=== PATIENT | female | born 1955 | race Caucasian/White ===

== ENCOUNTER → 2016-09-27 | Outpatient (CLI) | payer BC ==
[2015-09-29 14:03] VITALS: BP 152/88; PULSE 84
[~2016-09-27] MED LIST: ACET-1256 PO; ANAS1TAB19 PO; CALC500C70 PO; HYDR-5688 PO; LSN20 PO; METO-157 PO; MULT-506 PO; ZNT150 PO; ZNTT/150 PO
[2016-09-27 13:06] VITALS: BP 149/96; PULSE 70; TEMP 37; O2SAT 96
--- NOTE | 2016-09-27 13:39 | Radiation Oncology Follow-Up ---
Radiation Oncology Follow-Up Date of Visit Sep 27, 2016. Reason For Visit Annual follow up Radiation Completion Date 03/01/15 Diagnosis (1) Breast cancer Status: Resolved Onset Date: 06/16/2014 Permanent Comment: Self detected right breast mass Abnormal bilateral mammography and ultrasounds Status post ultrasound-guided biopsies 05/21/2014 revealing DCIS of the left breast and invasive lobular carcinoma the right breast Status post bilateral mastectomies with left sentinel lymph node biopsy and right axillary dissection Left breast stage [id number] Right breast stage [id number] M0G3 Status post 6 cycles of TCH Ongoing Herceptin for 1 year Status post completion of radiation therapy right chest wall, supraclavicular area and axilla 03/01/2015 received 6120 cGy Last Edited By: Yamel Rockwell on Sep 27, 2016 13:32 History of Present Illness his is a 61-year-old white female who self detected a right breast mass. She had a mammogram on 05/21/2014 which showed 2 dominant masses in the right breast. This caused focal skin thickening and retraction in the right breast. A second deeper lesion was large extending with spiculations measuring 5.2 cm in diameter. This caused nipple retraction and occupied most of the central 12: 00 right breast. This was associated with clustered calcifications mostly along the posterior margin near the fat glandular interface. Within the left breast there was pleomorphic and fine linear branching microcalcifications extending over at least an 8.7 cm distance from posterior to anterior in the left outer quadrant. An ultrasound was performed the findings were highly suspicious for malignancy. On 05/21/2014 ultrasound-guided biopsies were performed on the right and a vacuum assisted ultrasound-guided biopsy on the left. Finding in the right breast showed invasive lobular carcinoma Luisa grade 2 of 3 involving multiple cores measuring at least 0.5 cm in greatest dimension. No lymphovascular or perineural invasion was seen. The tumor cells were ER +95%, progesterone receptor +90% and negative for HER-2/jeri overexpression. The left breast ultrasound-guided vacuum-assisted biopsy showed ductal carcinoma in situ high-grade with associated comedo necrosis and calcifications. On June 16 patient was taken to the operating room and she had bilateral mastectomies. She had left sentinel lymph node sampling and a right axillary dissection.She developed hematoma was taken back to the emergency room and required a transfusion. She steadily recovered from her surgeries. The final path report revealed left breast with high-grade DCIS. 2 lymph nodes were biopsied and were negative for metastatic disease. The right breast showed invasive lobular carcinoma Luisa grade 3 of 3 the tumor measured 7.2 cm in greatest dimension. The axillary lymph node dissection revealed 7 of 10 nodes positive in axillary contents and 2 of 2 additional lymph nodes. The total was 9 12 lymph nodes. There was lymphovascular invasion present. Estrogen receptor positive progesterone receptor positive and HER-2/jeri was positive. AJCC staging [id number] Following recovery from her surgery she began chemotherapy. She completed 6 cycles of TCH. She did have some nausea without vomiting. It did cause fatigue. She denied any problems with paresthesias. No problems with changes of the fingernails or toenails. She had no mouth ulcerations. She noted difficulty with bowel movements. She'll continue on the Herceptin every 3 weeks. She has returned to our office for CT simulation to begin the process of radiation therapy. Interim History She's been doing well over this past year. She has noticed no change in the right chest wall. She is not no masses or tenderness no axillary adenopathy. She denies any swelling in her lower arm. She previously had some lymphedema in the upper arm and went to lymphedema therapy. She had the port removed from the left upper anterior chest wall. She noticed a small area of scar tissue just below the incision line. There is no tenderness or redness associated. She is seen regularly by medical oncology. She is on Arimidex and denies side effects. Allergies Coded Allergies: No Known Allergies (Unverified , 06/27/16) Home Medications Scheduled Anastrozole (Arimidex), 1 TAB PO QAM Calcium/Vitamin D (Os-Angel 500 Plus D), 1 TAB PO BID Lisinopril (Lisinopril), 20 MG PO QAM Scheduled PRN Hydrocodone/Acetaminophen 5MG/325MG ([place] 5MG/325MG), 1-2 TABLET PO q 6 hrs PRN for Pain Review of Systems Gastrointestinal: Symptoms: WNL Oral: Symptoms: No Problems Respiratory: Symptoms: WNL Urinary: Symptoms: WNL Skin: Symptoms: No Problems Breast: Right Upper Arm Measurement: 32.5 Right Mid Arm Measurement: 29.2 Right Wrist Measurement: 18.1 Left Upper Arm Measurement: 36.1 Left Mid Arm Measurement: 30.0 Left Wrist Measurement: 18.0 Arm Dominence: Right Physical Exam Vital Signs Date Time Temp Pulse Resp B/P Pulse Ox O2 Delivery O2 Flow Rate FiO2 09/27/16 13:06 37.0 70 14 149/96 96 Pain: Pain Location: None Patient Pain Scale: 0 - 10 Initial Pain Intensity: 0.0 Fatigue: None General Appearance: no apparent distress Eyes: normal inspection, EOMI ENT: normal ENT inspection, hearing grossly normal Neck: no adenopathy, thyroid normal Respiratory/Chest: lungs clear, no respiratory distress, no accessory muscle use Breast: Breast examination reveals bilateral mastectomies. On the right there are tattoos from prior treatment cast. There are no masses or tenderness and no axillary adenopathy. There is mild telangiectasis along the incision line. Using the [place] score cosmesis she has a good outcome. The left chest wall showed no masses or tenderness and no axillary adenopathy. She has a well- healed incision where the port had been placed. There is a small palpable nodule just below the incision line. There is no erythema or tenderness. Cardiovascular: regular rate, rhythm, no gallop, no murmur Extremities: no pedal edema Neurologic/Psychiatric: no motor/sensory deficits, alert, normal mood/affect Skin: warm/dry Lymphatic: no adenopathy Laboratory Studies Test 08/31/16 12:36 White Blood Count 12.11 K/uL (4.8-10.8) Red Blood Count 4.24 M/uL (4.2-5.4) Hemoglobin 11.9 g/dL (12.0-16.0) Hematocrit 35.7 % (37-47) Mean Corpuscular Volume 84.2 fL (80-100) Mean Corpuscular Hemoglobin 28.1 pg (25-34) Mean Corpuscular Hemoglobin Concent 33.3 g/dl (32-36) Platelet Count 167 K/uL (130-400) Mean Platelet Volume 8.9 fL (7.4-10.4) Neutrophils (%) (Auto) 72.0 % Lymphocytes (%) (Auto) 16.2 % Monocytes (%) (Auto) 8.1 % Eosinophils (%) (Auto) 3.1 % Basophils (%) (Auto) 0.4 % Neutrophils # (Auto) 8.73 K/uL (1.4-6.5) Lymphocytes # (Auto) 1.96 K/uL (1.2-3.4) Monocytes # (Auto) 0.98 K/uL (0.11-0.59) Eosinophils # (Auto) 0.37 K/uL (0-0.5) Basophils # (Auto) 0.05 K/uL (0-0.2) RDW Standard Deviation 47.4 fL (36.4-46.3) RDW Coefficient of Variation 15.4 % (11.5-14.5) Immature Granulocyte % (Auto) 0.2 % Immature Granulocyte # (Auto) 0.02 K/uL (0.00-0.02) Sodium Level 142 mmol/L (136-145) Potassium Level 3.7 mmol/L (3.5-5.1) Chloride Level 106 mmol/L (98-107) Carbon Dioxide Level 25 mmol/L (21-32) Anion Gap 11.0 mmol/L (3-11) Blood Urea Nitrogen 16 mg/dl (7-18) Creatinine 0.84 mg/dl (0.60-1.20) Est Creatinine Clear Calc Drug Dose 79.5 ml/min Estimated GFR () 87.6 Estimated GFR (Non- 75.5 BUN/Creatinine Ratio 18.7 (10-20) Random Glucose 79 mg/dl (70-99) Calcium Level 9.2 mg/dl (8.5-10.1) Total Bilirubin 0.3 mg/dl (0.2-1) Aspartate Amino Transferase (AST) 31 U/L (15-37) Alanine Aminotransferase (ALT) 32 U/L (12-78) Alkaline Phosphatase 154 U/L (45-117) Lactate Dehydrogenase 158 U/L (84-246) Total Protein 7.0 gm/dl (6.4-8.2) Albumin 3.5 gm/dl (3.4-5.0) Globulin 3.5 gm/dl (2.5-4.0) Albumin/Globulin Ratio 1.0 (0.9-2) Assessment & Plan Plan: Continue regular follow-up with medical oncology. We discussed the small nodule of the area just below the port. This may be a previous anchoring suture. I've asked her to call should this become larger or if she would develop any tenderness or redness in this area. She continues on Arimidex. We asked her to return to our office in 1 year. She may call if she has any questions or concerns in the interim. Total Time In Follow-Up I spent 15 minutes speaking to the patient performing examination. I spent 15 minutes reviewing information and completeness note. Copy To Constantin Pineda D.O.; Prabhjot Muñiz M.D.; Abdiel Bray M.D.
== END | disposition home or self-care (01) ==
LOC: C.ONC 13:00
PROVIDERS: ATTEND Radiology Radiation Oncology
DX: Z08 Encounter for follow-up examination after completed treatment for malignant neoplasm (principal); Z92.3 Personal history of irradiation; Z85.3 Personal history of malignant neoplasm of breast

== ENCOUNTER → 2017-01-04 | Outpatient (CLI) | payer BC ==
[~2017-01-04] MED LIST changes: -HYDR-5688 PO
--- NOTE | 2017-01-04 12:41 | DIAGNOSTIC IMAGING REPORT ---
CHEST 2 VIEWS ROUTINE CLINICAL HISTORY: Breast carcinoma. COMPARISON STUDY: 07/27/2014 FINDINGS: The heart is normal in size. There is been interval development of a small left pleural effusion. Minor left basal parenchymal changes likely representing compressive atelectasis. The right lung is clear. There is no failure. Degenerative changes are present within the dorsal spine.[ IMPRESSION: Interval development of a left pleural effusion. Electronically signed by: Alexis Bloom M.D. 01/04/2017 12:39 PM Dictated Date/Time: 01/04/2017 12:38 PM
== END | disposition home or self-care (01) ==
LOC: C.RAD 12:19
PROVIDERS: ATTEND Internal Medicine Hematology & Oncology
DX: C50.111 Malignant neoplasm of central portion of right female breast (principal); J90 Pleural effusion, not elsewhere classified

== ENCOUNTER → 2017-01-17 | Outpatient (CLI) | payer BC ==
[~2017-01-17] MED LIST changes: +OPTIRAY 320 IV PRN
--- NOTE | 2017-01-17 13:18 | DIAGNOSTIC IMAGING REPORT ---
CT SCAN OF THE ABDOMEN AND PELVIS WITH IV CONTRAST CLINICAL HISTORY: Breast cancer. COMPARISON STUDY: PET/CT dated 07/13/2014. TECHNIQUE: Following the IV administration of 118 cc of Optiray 320, CT scan of the abdomen and pelvis is performed from the lung bases to the proximal femora. Images are reviewed in the axial, sagittal, and coronal planes. IV contrast was administered without complication. Automated dose control exposure was utilized. CT DOSE: 870.30 mGy.cm FINDINGS: Lung bases: The heart is normal in size and without pericardial effusion. There is a small to moderate left pleural effusion with associated atelectasis. Only trace pleural effusion is seen on the right. There is a small hiatal hernia. The breasts are surgically absent. Liver: The contrast-enhanced liver is normal in size, contour, and attenuation. There is no intrahepatic biliary ductal dilatation. The hepatic veins and portal veins are patent. Gallbladder: Contracted. Spleen: Normal in size and markedly heterogeneous in attenuation. Pancreas: Unremarkable. Adrenal glands: Unremarkable. Kidneys: The contrast enhanced kidneys demonstrate mild cortical atrophy and are without hydronephrosis. The kidneys enhance symmetrically. A 6 cm cyst is noted in the interpolar right kidney. Abdominal vasculature: The abdominal aorta is normal in course and caliber noting scattered foci of atherosclerotic calcification. Bowel: The small bowel and colon are normal in course and caliber. The appendix appears abnormal and thickened, seen in the right lower quadrant on image #287. This measures 1.3 cm in diameter. Peritoneum: There is a moderate to large volume of abdominopelvic ascites. No intraperitoneal free air is seen. Omental caking is suggested anteriorly, and the appearance is highly concerning for peritoneal carcinomatosis. Lymphadenopathy: None. Pelvic viscera: The bladder is decompressed and not well assessed. The endometrium appears thickened for age. The ovaries appear enlarged and heterogeneous. A 3.8 cm simple appearing cystic structure seen adjacent to the left ovary on axial image #322. Skeletal structures: The skeletal structures are osteopenic. Findings are consistent with diffuse/widespread osteoblastic metastatic disease. Osteoblastic lesions are seen throughout all of the visualized bony structures. There is no evidence of pathologic fracture. Only mild lumbosacral spondylosis is observed. IMPRESSION: 1. Findings are consistent with diffuse/widespread osteoblastic metastatic disease. 2. There is a moderate to large volume of abdominopelvic ascites and omental caking is observed. The appearance is highly concerning for peritoneal carcinomatosis. 3. The ovaries are enlarged and heterogeneous, and appear symmetric bilaterally, and a 3.8 cm cystic structure is seen adjacent to the left ovary. Given the history of breast cancer this likely represents metastatic disease to the ovaries. Primary ovarian neoplasm is the top differential consideration. 4. The appendix is dilated and fluid-filled, and this represents a change from 07/13/2014. Acute appendicitis is considered unlikely, and this also likely represents metastatic disease. A primary appendiceal neoplasm is the top differential consideration. 5. The endometrium appears abnormally thickened for age. This is not well assessed by CT. Consider nonemergent pelvic ultrasound for further assessment. 6. Small to moderate left and trace right pleural effusions. 7. The breasts are surgically absent. 8. There is nonspecific marked heterogeneity of the spleen. 9. Additional findings as above. Electronically signed by: Melecio Schultz M.D. 01/17/2017 1:17 PM Dictated Date/Time: 01/17/2017 1:01 PM
== END | disposition home or self-care (01) ==
LOC: C.CTS 10:18
PROVIDERS: ATTEND Internal Medicine Hematology & Oncology
DX: C50.111 Malignant neoplasm of central portion of right female breast (principal); R18.8 Other ascites; Z90.13 Acquired absence of bilateral breasts and nipples; N83.299 Other ovarian cyst, unspecified side; M85.88 Other specified disorders of bone density and structure, other site

== ENCOUNTER → 2017-01-29 | Outpatient (CLI) | payer BC ==
[~2017-01-29] MED LIST changes: -OPTIRAY 320 IV PRN
--- NOTE | 2017-01-29 10:50 | DIAGNOSTIC IMAGING REPORT ---
PET/CT HISTORY: BREAST CANCER TECHNIQUE: PET/CT was performed from the base of the skull through the pelvis following the intravenous administration of 11.8 mCi of F18-FDG. Non-contrast CT imaging was performed over the same range without breath-hold for attenuation correction of PET images and anatomic correlation, but not for primary interpretation as it is not of standard diagnostic quality. CT DOSE: 530.27 mGycm COMPARISON: Abdomen and pelvis CT 01/17/2017. PET CT 07/13/2014. FINDINGS: HEAD AND NECK: There is no FDG-avid disease or significant lymphadenopathy in the imaged portions of the head and the neck. CHEST: Moderate left pleural effusion, unchanged. This demonstrates mild patchy FDG uptake with an SUV max of 1.9. No enlarged or FDG avid mediastinal hilar lymph nodes. FDG uptake within the distal esophagus may be physiologic. Patchy mild FDG uptake within the enlarged right thyroid lobe is also likely physiologic. This is similar to the prior study. Prior bilateral mastectomy. ABDOMEN/PELVIS: Heterogeneous FDG uptake within the liver, spleen, and throughout the bilateral adrenal glands. This is most pronounced within the spleen which demonstrates an SUV max of 5.6. No distinct masses identified. Small amount of ascites which has decreased. There is mild omental seen demonstrating mild FDG uptake with an SUV max of 2. This is consistent with peritoneal carcinomatosis. No FDG avid or enlarged lymph nodes. Symmetric enlargement of the bilateral ovaries demonstrating moderate patchy FDG uptake with an SUV max of 4. The cystic lesion abutting the left ovary does not demonstrate abnormal FDG uptake. MUSCULOSKELETAL: Widespread osteoblastic metastatic disease with associated FDG uptake. SUV max within the right posterior iliac bone is 3.5. IMPRESSION: 1. Moderate left pleural effusion demonstrates mild patchy FDG uptake. This is concerning for a malignant pleural effusion. 2. Peritoneal carcinomatosis as described above. A small amount of ascites has decreased in volume. 3. Mild enlargement and moderate patchy FDG uptake within the bilateral ovaries which also likely represents metastatic disease. 4. Heterogeneous FDG uptake within the liver, spleen, and bilateral adrenal glands. No distinct masses identified. This is most pronounced within the spleen. 5. Widespread osteoblastic metastatic disease. Electronically signed by: Driss Maloney M.D. 01/29/2017 10:49 AM Dictated Date/Time: 01/29/2017 10:33 AM
== END | disposition home or self-care (01) ==
LOC: C.PET 07:40
PROVIDERS: ATTEND Internal Medicine Hematology & Oncology
DX: C50.111 Malignant neoplasm of central portion of right female breast (principal)

== ENCOUNTER 2017-02-02 10:56 | Inpatient (IN) | payer BC ==
[~2017-02-02] VITALS: Ht 160 cm; Wt 89.7 kg
[~2017-02-02 10:56] MED LIST changes: -ACET-1256 PO; -METO-157 PO; -ZNT150 PO; -ZNTT/150 PO
--- NOTE | 2017-02-02 12:32 | History and Physical ---
History & Physical Date & Time of Service: Feb 02, 2017 at 11:59 Chief Complaint: Renal Insufficiency, Metastatic Breast Cancer Primary Care Physician: Constantin Pineda D.O. History of Present Illness Source: patient 62 y/o F Hx stage 3 breast CA treated with B/L mastectomy, chemo, Herceptin, radiation 2013. The pt had recently developed fullness in her stomach and presented to her oncologist for evaluation. She was sent for an abdomen, pelvis CT which was unfortunately consistent with widespread metastatic disease including multiple osteoblastic lesions and ascites. The CT was followed by a PET and then paracentesis of the ascites. The results are consistent with recurrence and metastasis of breast CA. Additionally, and possibly due to radiology contrast, her renal function is acutely impaired. The pt was sent in from her hematologists office for necessary testing, nephrology evaluation, IVF and medical optimization prior to consideration for immune therapy. She has no complaints at the time of admission - denies CP, SOB , abdominal pain, N/V, dysuria or fevers. Past Medical/Surgical History Medical Problems: (1) Breast cancer Permanent Comment: Self detected right breast mass Abnormal bilateral mammography and ultrasounds Status post ultrasound-guided biopsies 05/21/2014 revealing DCIS of the left breast and invasive lobular carcinoma the right breast Status post bilateral mastectomies with left sentinel lymph node biopsy and right axillary dissection Left breast stage [id number] Right breast stage [id number] M0G3 Status post 6 cycles of TCH Ongoing Herceptin for 1 year Status post completion of radiation therapy right chest wall, supraclavicular area and axilla 03/01/2015 received 6120 cGy Status: Resolved Social History Smoking Status: Never Smoker Immunizations History of Influenza Vaccine: N/A History of Tetanus Vaccine?: utd History of Pneumococcal: No History of Hepatitis B Vaccine: No Allergies Coded Allergies: No Known Allergies (Unverified , 01/25/17) Home Medications Scheduled Anastrozole (Arimidex), 1 TAB PO QAM Calcium/Vitamin D (Os-Angel 500 Plus D), 1 TAB PO BID Lisinopril (Lisinopril), 20 MG PO QAM Multivitamin (Multivitamin), 1 TAB PO DAILY Review of Systems Constitutional: No fever, No chills, No sweats Eyes: No worsening of vision, No eye pain ENT: No hearing loss, No unusual epistaxis, No nasal symptoms Respiratory: No cough, No sputum, No wheezing Cardiovascular: No chest pain, No orthopnea, No PND Abdomen: + problem reported (Fullness as above ), No pain, No nausea, No vomiting Musculoskeletal: No joint pain, No muscle pain Genitourinary - Female: No dysuria, No urinary frequency, No urinary urgency Neurologic: No memory loss, No paralysis, No weakness Psychiatric: No depression symptoms Endocrine: No fatigue Hematologic / Lymphatic: No abnormal bleeding/bruising Integumentary: No rash Allergic / Immunologic: No environmental allergies Physical Exam General Appearance: WD/WN, no apparent distress Head: normocephalic, atraumatic Eyes: normal inspection, PERRL, EOMI ENT: normal ENT inspection, pharynx normal Neck: supple, no JVD Respiratory/Chest: lungs clear, normal breath sounds Cardiovascular: regular rate, rhythm, no edema, no gallop Abdomen/GI: non tender, soft, + distended Back: normal inspection, no CVA tenderness, no muscle spasm, normal range of motion Extremities/Musculoskelatal: normal inspection, no calf tenderness, normal capillary refill Neurologic/Psych: 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 Findings are consistent with diffuse/widespread osteoblastic metastatic disease. 2. There is a moderate to large volume of abdominopelvic ascites and omental caking is observed. The appearance is highly concerning for peritoneal carcinomatosis. 3. The ovaries are enlarged and heterogeneous, and appear symmetric bilaterally , and a 3.8 cm cystic structure is seen adjacent to the left ovary. Given the history of breast cancer this likely represents metastatic disease to the ovaries. Primary ovarian neoplasm is the top differential consideration. 4. The appendix is dilated and fluid-filled, and this represents a change from 07/13/2014. Acute appendicitis is considered unlikely, and this also likely PET scan 1. Moderate left pleural effusion demonstrates mild patchy FDG uptake. This is concerning for a malignant pleural effusion. 2. Peritoneal carcinomatosis as described above. A small amount of ascites has decreased in volume. 3. Mild enlargement and moderate patchy FDG uptake within the bilateral ovaries which also likely represents metastatic disease. 4. Heterogeneous FDG uptake within the liver, spleen, and bilateral adrenal glands. No distinct masses identified. This is most pronounced within the spleen. 5. Widespread osteoblastic metastatic disease. Impression Assessment and Plan 62 y/o F Hx stage 3 breast CA treated with B/L mastectomy, chemo, Herceptin, radiation 2013. The pt had recently developed fullness in her stomach and presented to her oncologist for evaluation. She was sent for an abdomen, pelvis CT which was unfortunately consistent with widespread metastatic disease including multiple osteoblastic lesions and ascites. The CT was followed by a PET and then paracentesis of the ascites. The results are consistent with recurrence and metastasis of breast CA. Additionally, and possibly due to radiology contrast, her renal function is acutely impaired. The pt was sent in from her hematologists office for necessary testing, nephrology evaluation, IVF and medical optimization prior to consideration for immune therapy. 1) Metastatic breast CA - evaluation for immune therapy to include an echo, nephrology evaluation and MRI brain with contrast if renal function improves with IVF. Pt to be evaluated in hospital by her oncologist. 2) [facility] - will obtain urine lytes, provide aggressive IVF overnight, consult Nephrology. 3) HTN - Lisinopril held in setting of ARF - will provide sub if needed. Full code - Heparin prophylaxis Total time for this admit including review of labs, meds, imaging, recors - discussion with pt and Oncologist - 40 min VTE Prophylaxis VTE Risk Assessment Done? Y/N: Yes Risk Level: High
[2017-02-02] MEDS ORDERED: TRAMADOL HCL 50 MG TAB PO PRN (12:45)
--- NOTE | 2017-02-02 12:45 | Oncology Consultation ---
Oncology/Heme Consultation Date of Consultation: Feb 02, 2017. Attending Physician: Neil Reyes M.D. Reason for Consultation: Metastatic breast carcinoma Renal sufficiency History of Present Illness Mrs. Bueno is a 62-year-old female that in May 2014 was found to have bilateral breast carcinoma. The left breast was involved with DCIS lesion status post mastectomy and the right breast had a T3 N2 breast lesion. The tumor was ER positive and HER-2/jeri positive. A baseline PET/CT scan showed no evidence of metastatic disease and she was treated with Taxol carboplatinum and Herceptin. She received the chemotherapy for 6 cycles and Herceptin would continue for a year. She was also treated with radiation therapy to the chest wall again she is status post bilateral mastectomies. She has been on Arimidex until recently. She presented about a month ago with abdominal fullness. Baseline transaminases were somewhat elevated and a CT scan would demonstrate changes consistent with peritoneal metastasis and probably ovarian metastasis along with a small left pleural effusion and considerable ascites. An abdominal paracentesis would demonstrate cells consistent with adenocarcinoma. A second abdominal paracentesis done a week ago which further demonstrate these cells to be most likely consistent with metastatic breast carcinoma. HER-2/jeri is still pending. The patient would have a PET scan that showed diffuse osteoblastic metastasis as well as bilateral ovarian metastasis and findings consistent with peritoneal carcinomatosis. Yesterday the patient complained of nausea. Her creatinine had climbed from its usual of 1.0-1.9. Her performance status is declining fairly quickly and she has been admitted for evaluation and treatment of kidney function as well as preparation for eventual therapy of her metastatic breast carcinoma. Past Medical/Surgical History breast carcinoma metastatic Renal insufficiency Family History Grandmother had breast cancer as did a sister of her grandmother l Social History 's name is Jaquan. She denies significant smoking or alcohol usage Smoking Status: Never Smoker Allergies Coded Allergies: No Known Allergies (Unverified , 01/25/17) Home Medications Scheduled Anastrozole (Arimidex), 1 TAB PO QAM Calcium/Vitamin D (Os-Angel 500 Plus D), 1 TAB PO BID Lisinopril (Lisinopril), 20 MG PO QAM Multivitamin (Multivitamin), 1 TAB PO DAILY Current Inpatient Medications Current Inpatient Medications Medications (Trade) Dose Ordered Sig/Ruiz Route Start Time Stop Time Status Last Admin Dose Admin Heparin Sodium (Porcine) (Heparin Sq 5000 Unit/0.5ml) 5,000 unit Q8H SQ 02/02/17 14:00 03/04/17 13:59 Review of Systems Constitutional: Negative for weight loss, night sweats, or fever Eyes: Negative for event change of vision ENT: Negative for epistaxis, nasal discharge, sore throat, or deafness Cardiovascular: Negative for chest pain, palpitations, dizziness, diaphoresis Respiratory: Positive for shortness of breath if she exerts herself. She denies any pleuritic type chest pain Gastrointestinal: Negative for diarrhea, hematemesis, or melena, positive for nausea nausea with some occasional vomiting, Integumentary (skin): Negative for rash or jaundice discoloration Genitourinary: Negative for urinary frequency, hematuria, or dysuria Neurological: Negative for weakness, seizure activity, headache, or dizziness Lymphatic/Hematologic: Negative for petechiae, bleeding or new adenopathy Musculoskeletal: Negative for new joint or back pain or new bone pain Allergic/Immunologic: Negative for unusual rash or pruritis. Physical Exam Constitutional: vitals are stable. Eyes: Eyes are FELISA EOMI without conjuctival erythema or icterus. ENT: External examination was negative for masses. Neck: Negative for masses or palpable thyromegaly Respiratory: Lung sounds were generally clear bilaterally Cardiovascular: Heart was RRR without significant murmur, gallops aoe rubs Gastrointestinal: No palpable hepatic or splenomegaly. The abdomen was soft with normal bowel sounds. Ascites is present. The abdomen however is not terribly distended or taut with fluid Lymphatic system: there was no palpable peripheral lymphadenopathy Musculoskeletal System: The musculoskeletal system seemed concordant with age. Skin: The skin was negative for jaundice. Neurologic exam: The exam was negative for any focal findings. Deep tendon reflexes were equal and symmetrical. Psychiatric exam: Was essentially negative with normal mood and effect. Breast exam: Status post bilateral mastectomies without any evidence of local regional recurrence Extremities: Negative for significant edema or erythema Assessment & Plan Metastatic breast carcinoma. She has newfound renal insufficiency- the cause is unclear. The original tumor was HER-2/jeri positive and ER positive. More recent tumor or fluid analysis continues to show ER positivity however this tumor is obviously endocrine therapy refractory. The cells also continue to show weak to moderate staining for Her 2-jeri. Would suggest nephrology consultation. In preparation for eventual therapy with pertuzumab, trastuzumab. and weekly Taxol- would like to see an echocardiogram.. The patient has been complaining of nausea. I don't believe that she has GI obstruction. An MRI of her brain would also be warranted when the creatinine allows. She most likely would need a PICC line placed in addition to most likely go home with the PICC line in place. Hopefully we will be able to administer her first course of therapy well hospitalized early in the next week. Finally the patient had told me about removing a tic from her back a few weeks ago. We did check for Lyme and her IgG serologies are positive. IgM demonstrated positivity for 2 0f 3 proteins. We have treated her then for what might be late Lyme disease with doxycycline 100 mg a day. I would appreciate a comment as to whether this was necessary as we begin therapy that will immunosuppress her
[2017-02-02] MEDS: SODIUM CHLORIDE 0.9% 1000ML 1,000 ML IV SCH ×2 (13:09→20:23)
[2017-02-02 13:37] VITALS: BP 115/78; PULSE 101; TEMP 36.8; O2SAT 95; Ht 160 cm; Wt 89.7 kg
[2017-02-02] MEDS ORDERED: PERFLUTREN LIPID MICROSPHERE (DEFINITY) IV ONE (13:45)
[2017-02-02] MEDS: HEPARIN SOD 5000 UNIT/0.5 ML CARP SQ SCH ×2 (14:00→21:56)
[2017-02-02 14:48] VITALS: BP 109/75; PULSE 89; TEMP 37.2; O2SAT 99
[2017-02-02 15:08] LABS: URINE APPEARANCE CLEAR (CLEAR); URINE BILIRUBIN NEG (NEG); URINE COLOR YELLOW; URINE EPITHELIAL CELL AUTO >30 /lpf (0-5); URINE NITRITE NEG (NEG); URINE PH 5.5 (4.5-7.5); URINE SPECIFIC GRAVITY 1.027 (1.000-1.030); UROBILINOGEN NEG (NEG)
[2017-02-02 15:16] LABS: MANUAL MICROSCOPIC REQUIRED? NO; REVIEW REQ? NO
--- NOTE | 2017-02-02 17:35 | Nephrology Consultation ---
Nephrology Consultation Date & Providers Date of Consultation: Feb 02, 2017. Primary Care Provider: Constantin Pineda D.O. Referring Provider: Reason for Consultation JASON History of Present Illness Mrs. Sara Bueno is a 62-year-old female who was seen and evaluated this afternoon for evaluation of acute renal insufficiency. Medical records including oncology note and recent imaging were reviewed. In May 2014, Sara was found to have bilateral breast carcinoma (left = DCIS; right = T3N2), ER positive and HER-2/jeri positive. Baseline PET/CT showed no evidence of metastatic disease. She Taxol/carbo (6 cycles) and Herceptin (x1 year). Radiation therapy was provided to the chest wall . She was subsequently maintained on Arimidex. She tolerated initial therapy well. Unfortunately, she recently developed abdominal fullness. Transaminases were noted to be slightly elevated. CT scan subsequently revealed metastasis. This was followed with a PET/CT and paracentesis. She has a malignant effusion on the left and diffuse metastatic disease including peritoneal and ovarian with ascites as well as diffuse osteoblastic lesions. She has been experiencing nausea and anorexia for 24-48 hours. She notes some recent unintentional weight loss as well and decreasing activity tolerance. She describes a steady decline in activity tolerance associated with progressive weakness. Laboratory studies yesterday are notable for JASON. Serum creatinine increased from baseline 1.0 mg/dL to 1.9 mg/dL. She has not noticed any change in urine output. She has no urinary complaints. She has not recently used any NSAIDs. She does take lisinopril for hypertension. Sara was found to have a tick bite approximately 1 week ago. She was started on doxycycline. She had attributed some nausea and anorexia to the medication. Past Medical/Surgical History Medical: -- Breast cancer -- Hypertension -- Recent tick bite - started on Doxycycline for Lyme Surgical: Bilateral mastectomies with left sentinel lymph node biopsy and right axillary dissection, 2013 Allergies Coded Allergies: No Known Allergies (Unverified , 01/25/17) Inpatient Medications Current Inpatient Medications Medications (Trade) Dose Ordered Sig/Ruiz Route Start Time Stop Time Status Last Admin Dose Admin Heparin Sodium (Porcine) (Heparin Sq 5000 Unit/0.5ml) 5,000 unit Q8H SQ 02/02/17 14:00 03/04/17 13:59 Tramadol HCl (Ultram Tab) 50 mg Q4H PRN PO 02/02/17 12:45 03/04/17 12:44 Sodium Chloride 1,000 ml @ 150 mls/hr Q6H40M IV 02/02/17 12:45 02/03/17 02:04 02/02/17 13:09 150 MLS/HR Family History Significant maternal family history of breast cancer Social History Smoking Status: Never Smoker Alcohol Use: none Marital Status: Housing Status: lives with family Lives in [place], [place] with her (Jaquan) Review of Systems A complete review of systems was performed. Pertinent positives are noted above. All other systems are negative. Physical Exam Date Time Temp Pulse Resp B/P (MAP) Pulse Ox O2 Delivery O2 Flow Rate FiO2 02/02/17 14:48 37.2 89 18 109/75 (86) 99 02/02/17 13:37 36.8 101 20 115/78 95 Room Air General Appearance: WD/WN, no apparent distress Head: normocephalic, atraumatic Eyes: normal inspection, sclerae normal ENT: normal ENT inspection, pharynx normal Neck: supple, no JVD Respiratory/Chest: lungs clear, no respiratory distress, no accessory muscle use, + decreased breath sounds (left sided) Cardiovascular: regular rate, rhythm, no gallop Abdomen/GI: non tender, soft Back: no CVA tenderness Extremities/Musculoskelatal: normal inspection, no pedal edema Neurologic/Psych: alert, oriented x 3 Skin: normal color Laboratory Results Last 24 Hours Test 02/02/17 14:20 Urine Color YELLOW Urine Appearance CLEAR Urine pH 5.5 Urine Specific [place] 1.027 Urine Protein NEG Urine Glucose (UA) NEG Urine Ketones NEG Urine Occult Blood NEG Urine Nitrite NEG Urine Bilirubin NEG Urine Urobilinogen NEG Urine Leukocyte Esterase NEG Urine WBC (Auto) 1-5 /hpf Urine RBC (Auto) 0-4 /hpf Urine Hyaline Casts (Auto) 1-5 /lpf Urine Epithelial Cells (Auto) >30 /lpf Urine Bacteria (Auto) NEG Urine Random Creatinine 170.0 mg/dl Urine Random Sodium 23 mEq/L Impression (1) Acute renal insufficiency (2) Hypertension (3) Metastatic breast cancer (4) Ascites (5) Pleural effusion, left Sara is a 62-year-old female with diffuse metastatic breast cancer with a left sided pleural effusion, peritoneal and ovarian with ascites as well as osteoblastic lesions. Treatment is being planned and currently held pending improvement of acute renal insufficiency. Baseline creatinine ~1.0 mg/dL. Kidneys are normal in appearance on recent CT imaging. Urine analysis is bland with acellular microscopy. Lisinopril is being held. Blood pressure appears appropriate. She does not have significant evidence of hypovolemia but JASON is likely consistent with decreased EAV and intravascular volume depletion versus ATN. She was recently started on doxycycline for a tick bite. I do not suspect this is related to JASON. Recommendations -- Continue 0.9% saline at 100-150 ml/hr -- Hold lisinopril -- Document I/O's -- Serial orthostatic vitals -- Repeat metabolic profile tomorrow AM
--- NOTE | 2017-02-02 18:56 | ECHOCARDIOGRAM REPORT ---
*NOTICE TO RECEIVING DEMOCRAT AGENCY This information is strictly Confidential and protected under [place] law. [place] law prohibits you from making any further disclosure of this information unless further disclosure is expressly permitted by the written consent of the person to whom it pertains or is authorized by law. A general authorization for the release of medical or other information is not sufficient for this purpose. Hospital accepts no responsibility if the information is made available to any other person, INCLUDING THE PATIENT. Interpretation Summary * Name: RAS ABREU Study Date: 02/02/2017 01:07 PM BP: 115/78 mmHg * Patient Location: .4E\S\E410\S\1 HR: 101 * : 1955 (M/d/yyyy) Gender: Female * Age: 62 yrs Ethnicity: [place] * Ordering Physician: Neil Reyes * Referring Physician: Constantin Pineda D.O. * Performed By: Karyn Howard RDCS * * Reason For Study: Evaluate for cancer treatment * -- Conclusions -- * 1. Normal left ventricular size and systolic function. EF 60-65%. No regional wall motion abnormalities. No left ventricular hypertrophy. * 2. No significant valvular abnormalities. * 3. Normal estimated right ventricular systolic pressure; 20 mmHg. * 4. Technically difficult study, enhanced with IV Definity. * 5. No prior study available for comparison. Procedure Details * A complete two-dimensional transthoracic echocardiogram was performed (2D, M-mode, Doppler and color flow Doppler). * A contrast injection of Definity was performed to improve assessment of LV function. * Contrast was injected into an intravenous site in the right arm. * One vial of Definity ultrasound contrast was diluted in normal saline to a total volume of 10 ml. A total of '2' ml of solution was administered during imaging. * Lot # [id number] of Definity utilized for procedure. * Expiration date APR 06. * The attending nurse who injected the contrast agent was Rebeca Polo RN. Left Ventricle * Normal left ventricular size and systolic function. EF 60-65%. No regional wall motion abnormalities. No left ventricular hypertrophy. Right Ventricle * The right ventricle is normal in size and function. * The right ventricular systolic function is normal as assessed by tricuspid annular plane systolic excursion (TAPSE) (normal >1.5 cm). Atria * The left atrial size is normal. * Right atrial size is normal. * There is no evidence of atrial septal defect, but resolution does not allow assessment for a patent foramen ovale. Mitral Valve * There is mild mitral annular calcification. * There is no mitral valve stenosis. * There is trace mitral regurgitation. Tricuspid Valve * The tricuspid valve is not well visualized, but is grossly normal. * There is no tricuspid stenosis. * There is trace tricuspid regurgitation. Aortic Valve * The aortic valve is trileaflet. * No hemodynamically significant valvular aortic stenosis. * No aortic regurgitation is present. Pulmonic Valve * The pulmonary valve is inadequately visualized, but the Doppler data is adequate for interpretation. * There is no pulmonic valvular stenosis. * Trace pulmonic valvular regurgitation. Great Vessels * The aortic root is normal size. * Aortic arch of normal dimension. * Ascending aorta of normal dimension * Normal pulmonary venous flow pattern. Pericardium/Pleural * There is no pericardial effusion. Great Vessels * Normal inferior vena cava size and collapsability with sniff indicates a normal right atrial pressure of 3 mmHg MMode 2D Measurements and Calculations IVSd 0.88 cm LVIDd 4.1 cm LVIDs 2.7 cm LVPWd 0.92 cm IVS/LVPW 0.95 FS 35.2 % EDV(Teich) 74.5 ml ESV(Teich) 26.0 ml EF(Teich) 65.1 % EDV(cubed) 69.2 ml ESV(cubed) 18.8 ml EF(cubed) 72.9 % LV mass(C)d 114.7 grams CO(Teich) 3.9 l/min SV(Teich) 48.5 ml CO(cubed) 4.1 l/min SV(cubed) 50.4 ml Ao root diam 3.1 cm Ao root area 7.4 cm\S\2 ACS 1.7 cm asc Aorta Diam 2.5 cm LVOT diam 2.0 cm LVOT area 3.2 cm\S\2 LVAd ap4 22.0 cm\S\2 LVLd ap4 7.0 cm EDV(MOD-sp4) 57.0 ml LVAs ap4 12.1 cm\S\2 LVLs ap4 5.7 cm ESV(MOD-sp4) 21.5 ml EF(MOD-sp4) 62.3 % LVAd ap2 25.6 cm\S\2 LVLd ap2 7.0 cm EDV(MOD-sp2) 77.9 ml LVAs ap2 13.5 cm\S\2 LVLs ap2 5.3 cm ESV(MOD-sp2) 28.5 ml EF(MOD-sp2) 63.4 % CO(MOD-sp4) 2.9 l/min SV(MOD-sp4) 35.5 ml CO(MOD-sp2) 4.0 l/min SV(MOD-sp2) 49.4 ml Doppler Measurements and Calculations MV E max [place] 89.7 cm/sec MV A max [place] 85.4 cm/sec MV E/A 1.1 MV dec time 0.27 sec Ao V2 max 143.5 cm/sec Ao max PG 8.2 mmHg Ao max PG (full) 1.9 mmHg ASHLYN(V,A) 2.8 cm\S\2 ASHLYN(V,D) 2.8 cm\S\2 LV V1 max PG 6.3 mmHg LV V1 max 125.6 cm/sec PA V2 max 97.7 cm/sec PA max PG 3.8 mmHg PA acc slope 662.0 cm/sec\S\2 PA acc time 0.13 sec PI max mad[place] 176.5 cm/sec PI max PG 12.5 mmHg PI dec slope 303.5 cm/sec\S\2 PI P1/2t 170.3 msec TR max mad[place] 206.5 cm/sec RVSP(TR) 20.1 mmHg RAP systole 3.0 mmHg PA pr(Accel) 22.0 mmHg
[2017-02-02 19:33] VITALS: BP 113/70; PULSE 86; TEMP 37.6; O2SAT 97
[2017-02-03] VITALS (9 sets, daily range): BP systolic 97–127; BP diastolic 59–88; PULSE 79–96; TEMP 37.1–37.5; O2SAT 94–97
[2017-02-03] MEDS: HEPARIN SOD 5000 UNIT/0.5 ML CARP SQ SCH ×3 (06:00→21:47)
[2017-02-03] MEDS ORDERED: ONDANSETRON INJ 2 MG/ML 2 ML VIAL IV PRN ×2 (06:45→12:45)
[2017-02-03 10:13] LABS: BUN/CREATININE RATIO 27.8 (10-20); CALCIUM 8.6 mg/dl (8.5-10.1); CREATININE 1.2 mg/dl (0.60-1.20); PHOSPHORUS 2.9 mg/dl (2.5-4.9); POTASSIUM 4.2 mmol/L (3.5-5.1)
[2017-02-03] MEDS ORDERED: ONDANSETRON INJ 2 MG/ML 2 ML VIAL IV ONE (10:15)
--- NOTE | 2017-02-03 10:45 | Hematology/Oncology Prog Note ---
Hematology/Onc Progress Note Date of Service Feb 03, 2017. Diagnoses Metastatic breast carcinoma Recent renal failure Medications Medications Administered Medications (Trade) Dose Ordered Sig/Ruiz Route Start Time Stop Time Status Last Admin Dose Admin Sodium Chloride 1,000 ml @ 150 mls/hr Q6H40M IV 02/02/17 12:45 02/03/17 02:04 DC 02/02/17 20:23 150 MLS/HR Perflutren Lipid Microsphere (Definity) 2 ml ONE ONCE IV 02/02/17 13:45 02/02/17 13:46 DC 02/02/17 13:45 2 ML Ondansetron HCl (Zofran Inj) 4 mg Q6H PRN IV 02/03/17 06:45 02/03/17 09:53 DC 02/03/17 06:43 4 MG Subjective She continues to have nausea. Echocardiogram has been done and is adequate for anticipated therapy. Lab work that I have reflects a creatinine is morning of 1.2. She denies new pain. Vitals have been stable. Review of Systems: Constitutional: Negative for weight loss, night sweats, or fever Eyes: Negative for event change of vision ENT: Negative for epistaxis, nasal discharge, sore throat, or deafness Cardiovascular: Negative for chest pain, palpitations, dizziness, diaphoresis Respiratory: Negative for new shortness of breath,hemoptysis, or purulent cough Gastrointestinal: Negative for diarrhea, hematemesis, melena, she does have an continues to have nausea without emesis Integumentary (skin): Negative for rash or jaundice discoloration Genitourinary: Negative for urinary frequency, hematuria, or dysuria Neurological: Negative for weakness, seizure activity, significant headache, or dizziness Lymphatic/Hematologic: Negative for petechiae, bleeding or new adenopathy Musculoskeletal: Negative for new joint or back pain Allergic/Immunologic: Negative for unusual rash or pruritis. Vital Signs Vital Signs Past 12 Hours Date Time Temp Pulse Resp B/P (MAP) Pulse Ox O2 Delivery O2 Flow Rate FiO2 02/03/17 08:30 94 Room Air 02/03/17 07:42 37.2 87 16 127/79 (95) 94 Room Air 02/03/17 04:28 37.1 96 19 127/88 (101) 95 Room Air 02/03/17 00:18 37.5 90 16 121/82 (95) 96 Room Air 02/02/17 23:59 Room Air Physical Exam Constitutional: vitals are stable. Eyes: Eyes are FELISA EOMI without conjuctival erythema or icterus. ENT: External examination was negative for masses. Neck: Negative for masses or palpable thyromegaly Respiratory: Lung sounds were generally clear bilaterally Cardiovascular: Heart was RRR without significant murmur, gallops aoe rubs Gastrointestinal: No palpable hepatic or splenomegaly. The abdomen was soft with normal bowel sounds. Ascites is present as before Lymphatic system: there was no palpable peripheral lymphadenopathy Musculoskeletal System: The musculoskeletal system seemed concordant with age. Skin: The skin was negative for jaundice. Neurologic exam: The exam was negative for any focal findings. Deep tendon reflexes were equal and symmetrical. Psychiatric exam: Was essentially negative with normal mood and effect. Breast exam: Status post bilateral mastectomies Extremities: Negative for edema or erythema Laboratory Last 24 Hours Test 02/02/17 14:20 02/03/17 09:10 Urine Color YELLOW Urine Appearance CLEAR Urine pH 5.5 Urine Specific [place] 1.027 Urine Protein NEG Urine Glucose (UA) NEG Urine Ketones NEG Urine Occult Blood NEG Urine Nitrite NEG Urine Bilirubin NEG Urine Urobilinogen NEG Urine Leukocyte Esterase NEG Urine WBC (Auto) 1-5 /hpf Urine RBC (Auto) 0-4 /hpf Urine Hyaline Casts (Auto) 1-5 /lpf Urine Epithelial Cells (Auto) >30 /lpf Urine Bacteria (Auto) NEG Urine Random Creatinine 170.0 mg/dl Urine Random Sodium 23 mEq/L Sodium Level 144 mmol/L Potassium Level 4.2 mmol/L Chloride Level 112 mmol/L Carbon Dioxide Level 23 mmol/L Anion Gap 9.0 mmol/L Blood Urea Nitrogen 33 mg/dl Creatinine 1.20 mg/dl Est Creatinine Clear Calc Drug Dose 51.5 ml/min Estimated GFR () 56.5 Estimated GFR (Non- 48.7 BUN/Creatinine Ratio 27.8 Random Glucose 118 mg/dl Calcium Level 8.6 mg/dl Phosphorus Level 2.9 mg/dl Albumin 2.6 gm/dl Assessment & Plan Metastatic breast carcinoma. Creatinine today is 1.2. She continues to have nausea. We are ready to treat with pertuzumab, trastuzumab and Taxol. However it does appear that she will need a port. Dr. Muñiz had placement before and we will ask for the consultation.. I will also ask for an MRI of the brain because of the continued nausea with unexplained etiology rule out [employer] metastasis. Echocardiogram shows an LVEF that is acceptable for therapy.
--- NOTE | 2017-02-03 10:48 | Nephrology Progress Note ---
Nephrology Progress Note Date of Service Feb 03, 2017. Chief Complaint Follow up evaluation of acute on chronic kidney injury Subjective Mrs. Bueno was seen & examined in her hospital room this morning. Her was present at bedside. Mrs. Bueno complained of mild nausea but indicated that she is able to keep down a liquid diet and has maintained good urine output. Review of Systems Constitutional: No fever Cardiovascular: No chest pain Respiratory: No dyspnea at rest Abdomen: + nausea, No pain, No vomiting Genitourinary - Female: No dysuria Extremities: No leg edema A complete review of systems was performed. Pertinent positives are noted above. All other systems are negative. Vital Signs Last 8 Hrs Date Time Temp Pulse Resp B/P (MAP) Pulse Ox O2 Delivery O2 Flow Rate FiO2 02/03/17 08:30 94 Room Air 02/03/17 07:42 37.2 87 16 127/79 (95) 94 Room Air 02/03/17 04:28 37.1 96 19 127/88 (101) 95 Room Air Last Recorded Weight Weight (Kilograms): 87.200 Physical Exam General Appearance: no apparent distress Head: atraumatic Eyes: PERRL Neck: no adenopathy Respiratory/Chest: lungs clear, no respiratory distress Cardiovascular: regular rate, rhythm Abdomen/GI: non tender Extremities/Musculoskelatal: no pedal edema Neurologic/Psych: alert, oriented x 3 Family History Significant maternal family history of breast cancer Social History Alcohol Use: none Marital Status: Housing Status: lives with family Lives in [place], [place] with her (Jaquan) Laboratory Results Past 24 Hours 02/03/17 09:10 Test 02/02/17 14:20 02/03/17 09:10 Urine Color YELLOW Urine Appearance CLEAR (CLEAR) Urine pH 5.5 (4.5-7.5) Urine Specific [place] 1.027 (1.000-1.030) Urine Protein NEG (NEG) Urine Glucose (UA) NEG (NEG) Urine Ketones NEG (NEG) Urine Occult Blood NEG (NEG) Urine Nitrite NEG (NEG) Urine Bilirubin NEG (NEG) Urine Urobilinogen NEG (NEG) Urine Leukocyte Esterase NEG (NEG) Urine WBC (Auto) 1-5 /hpf (0-5) Urine RBC (Auto) 0-4 /hpf (0-4) Urine Hyaline Casts (Auto) 1-5 /lpf (0-5) Urine Epithelial Cells (Auto) >30 /lpf (0-5) Urine Bacteria (Auto) NEG (NEG) Urine Random Creatinine 170.0 mg/dl Urine Random Sodium 23 mEq/L Anion Gap 9.0 mmol/L (3-11) Est Creatinine Clear Calc Drug Dose 51.5 ml/min Estimated GFR () 56.5 Estimated GFR (Non- 48.7 BUN/Creatinine Ratio 27.8 (10-20) Calcium Level 8.6 mg/dl (8.5-10.1) Phosphorus Level 2.9 mg/dl (2.5-4.9) Albumin 2.6 gm/dl (3.4-5.0) Allergies Coded Allergies: No Known Allergies (Unverified , 01/25/17) Medications Current Inpatient Medications Medications (Trade) Dose Ordered Sig/Ruiz Route Start Time Stop Time Status Last Admin Dose Admin Heparin Sodium (Porcine) (Heparin Sq 5000 Unit/0.5ml) 5,000 unit Q8H SQ 02/02/17 14:00 03/04/17 13:59 Tramadol HCl (Ultram Tab) 50 mg Q4H PRN PO 02/02/17 12:45 03/04/17 12:44 Ondansetron HCl (Zofran Inj) 8 mg Q6H PRN IV 02/03/17 12:45 03/05/17 06:44 Impression (1) Acute renal insufficiency (2) Hypertension (3) Metastatic breast cancer (4) Ascites (5) Pleural effusion, left Mrs. Bueno has metastatic breast cancer with a left sided pleural effusion, carcinomatosis and osteoblastic lesions. Treatment is being planned pending improvement of JASON. Baseline creatinine ~1.0 mg/dL. Kidneys are normal in appearance on recent CT imaging. Urinalysis is bland with acellular microscopy. Lisinopril is being held. Blood pressure remains acceptable. Her JASON is c/w decreased EAV and intravascular volume depletion versus ATN. Recommendations -- Kidney function is improving and nearing baseline -- IV fluid has been stopped -- Monitor I&O's, serial PRP -- Continue to hold Lisinopril. 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
[2017-02-03] MEDS ORDERED: ONDANSETRON INJ 8 MG in DEXTROSE 5% 50ML 50 ML IV PRN (11:00)
--- NOTE | 2017-02-03 12:05 | Pre-Operative Consultation ---
History General Date of Service: Feb 03, 2017. Stated Complaint: metastatic breast cancer HPI HPI: The patient is a 62 year old female being seen at the request of Dr. Pineda for port placement. She has a history of left sided port a cath placed by Dr. Muñiz for chemotherapy for her prior [id number] positive breast cancer. She is s/p bilateral mastectomies. Now with evidence of metastatic disease with peritoneal carcinomatosis. Admitted for nausea and elevated creatinine. Asked to place port for upcoming chemotherapy. No h/o clavicular fractures. She is right handed. No bleeding or clotting tendencies. No trouble with previous port. Historian: patient Anticipated Procedure: port a cath placement, left possible right Risk Assessment Daily beta giovanni use?: No Medical & Surgical History Past Medical History: cancer - breast Past Surgical History: mastectomy (bilateral) Family History Family History: no pertinent family hx Social History Hx Tobacco Use In Past Year?: No Smoking Status: Never Smoker Marital status: Housing status: lives with family Immunizations Have You Had Influenza Vaccine: N/A Have You Had Tetanus Vaccine: utd History of Pneumococcal: No History Hepatitis B Vaccine: No Allergies Allergies: Coded Allergies: No Known Allergies (Unverified , 01/25/17) Medications Current Inpatient Medications Current Inpatient Medications Medications (Trade) Dose Ordered Sig/Ruiz Route Start Time Stop Time Status Last Admin Dose Admin Heparin Sodium (Porcine) (Heparin Sq 5000 Unit/0.5ml) 5,000 unit Q8H SQ 02/02/17 14:00 03/04/17 13:59 Tramadol HCl (Ultram Tab) 50 mg Q4H PRN PO 02/02/17 12:45 03/04/17 12:44 Ondansetron HCl 8 mg/Dextrose 54 ml @ 216 mls/hr Q6H PRN IV 02/03/17 11:00 03/05/17 10:59 Review of Systems Review of Systems Constitutional: no symptoms reported Eyes: reports: no symptoms ENT: reports: no symptoms reported Cardiovascular: reports: no symptoms reported Respiratory: reports: no symptoms reported Gastrointestinal: nausea, other (bloating, abdominal fullness) Musculoskeletal: no symptoms reported Neurologic: reports: no symptoms Physical Exam Physical Exam General Appearance: + WD/WN, No distress Ears, Nose, Throat: + normal ENT inspection Neck: No abnormal inspection Respiratory: No accessory muscle use, No abnormal breath sounds Cardiovascular: No JVD, No abnormal rate, No diastolic murmur, No systolic murmur Skin Characteristics: + other (well healed left port site) Diagnostics Labs Labs Results Past 24 Hours Test 02/02/17 14:20 02/03/17 09:10 02/03/17 11:09 Range/Units Urine Color YELLOW Urine Appearance CLEAR CLEAR Urine pH 5.5 4.5-7.5 Urine Specific [place] 1.027 1.000-1.030 Urine Protein NEG NEG Urine Glucose (UA) NEG NEG Urine Ketones NEG NEG Urine Occult Blood NEG NEG Urine Nitrite NEG NEG Urine Bilirubin NEG NEG Urine Urobilinogen NEG NEG Urine Leukocyte Esterase NEG NEG Urine WBC (Auto) 1-5 0-5 /hpf Urine RBC (Auto) 0-4 0-4 /hpf Urine Hyaline Casts (Auto) 1-5 0-5 /lpf Urine Epithelial Cells (Auto) >30 0-5 /lpf Urine Bacteria (Auto) NEG NEG Urine Random Creatinine 170.0 mg/dl Urine Random Sodium 23 mEq/L Sodium Level 144 136-145 mmol/L Potassium Level 4.2 3.5-5.1 mmol/L Chloride Level 112 98-107 mmol/L Carbon Dioxide Level 23 21-32 mmol/L Anion Gap 9.0 3-11 mmol/L Blood Urea Nitrogen 33 7-18 mg/dl Creatinine 1.20 0.60-1.20 mg/dl Est Creatinine Clear Calc Drug Dose 51.5 ml/min Estimated GFR () 56.5 Estimated GFR (Non- 48.7 BUN/Creatinine Ratio 27.8 10-20 Random Glucose 118 70-99 mg/dl Calcium Level 8.6 8.5-10.1 mg/dl Phosphorus Level 2.9 2.5-4.9 mg/dl Albumin 2.6 3.4-5.0 gm/dl Lab Interpretation Lab Interpretation: labs were reviewed Impression Assessment and Plan Assessment and Plan 62 yr old woman s/p bilateral mastectomies for stage 3 [id number] positive breast cancer now with metastatic disease. Prior left sided port had been removed. Discussed port placement - left, possible right side with risks of bleeding, infection, pneumothorax, port malfunction, dvt. Consent signed. Will add on for tomorrow. NPO after midnight.
--- NOTE | 2017-02-03 12:24 | Progress Note ---
Subjective Date of Service: Feb 03, 2017. Subjective Pt evaluation today including: conversation w/ patient, conversation w/ family , physical exam, chart review, lab review, review of inpatient medication list feeling better less nauseated kirti helping a lot but still has some nausea notes she's been nauseated for abotu a month. doesn't really remember how long she was treated with doxy - initially thinsk about a week then when discussing and that treatment would typically be two weeks she thinks it was that - got abx at [facility]. will have to investigate. also not entirely clear that she took the whole coursre due to upset stomach - fairly difficult historian in this respect Review of Systems ROS otherwise negative except for as above Objective Vital Signs Date Time Temp Pulse Resp B/P (MAP) Pulse Ox O2 Delivery O2 Flow Rate FiO2 02/03/17 11:30 37.4 84 118/78 (91) 96 02/03/17 08:30 94 Room Air 02/03/17 07:42 37.2 87 16 127/79 (95) 94 Room Air 02/03/17 04:28 37.1 96 19 127/88 (101) 95 Room Air 02/03/17 00:18 37.5 90 16 121/82 (95) 96 Room Air 02/02/17 23:59 Room Air 02/02/17 20:00 Room Air 02/02/17 19:33 37.6 86 16 113/70 (84) 97 Room Air 02/02/17 14:48 37.2 89 18 109/75 (86) 99 02/02/17 13:37 36.8 101 20 115/78 95 Room Air Physical Exam General Appearance: no apparent distress Eyes: EOMI ENT: hearing grossly normal Neck: trachea midline Respiratory/Chest: no respiratory distress, no accessory muscle use Extremities: normal range of motion 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, 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 Skin: normal color, warm/dry Laboratory Results Last 24 Hours Test 02/02/17 14:20 02/03/17 09:10 02/03/17 11:09 Urine Color YELLOW Urine Appearance CLEAR Urine pH 5.5 Urine Specific [place] 1.027 Urine Protein NEG Urine Glucose (UA) NEG Urine Ketones NEG Urine Occult Blood NEG Urine Nitrite NEG Urine Bilirubin NEG Urine Urobilinogen NEG Urine Leukocyte Esterase NEG Urine WBC (Auto) 1-5 /hpf Urine RBC (Auto) 0-4 /hpf Urine Hyaline Casts (Auto) 1-5 /lpf Urine Epithelial Cells (Auto) >30 /lpf Urine Bacteria (Auto) NEG Urine Random Creatinine 170.0 mg/dl Urine Random Sodium 23 mEq/L Sodium Level 144 mmol/L Potassium Level 4.2 mmol/L Chloride Level 112 mmol/L Carbon Dioxide Level 23 mmol/L Anion Gap 9.0 mmol/L Blood Urea Nitrogen 33 mg/dl Creatinine 1.20 mg/dl Est Creatinine Clear Calc Drug Dose 51.5 ml/min Estimated GFR () 56.5 Estimated GFR (Non- 48.7 BUN/Creatinine Ratio 27.8 Random Glucose 118 mg/dl Calcium Level 8.6 mg/dl Phosphorus Level 2.9 mg/dl Albumin 2.6 gm/dl Assessment and Plan 62 y/o F Hx stage 3 breast CA treated with B/L mastectomy, chemo, Herceptin, radiation 2013. The pt had recently developed fullness in her stomach and presented to her oncologist for evaluation. She was sent for an abdomen, pelvis CT which was unfortunately consistent with widespread metastatic disease including multiple osteoblastic lesions and ascites. The CT was followed by a PET and then paracentesis of the ascites. The results are consistent with recurrence and metastasis of breast CA. Additionally, and possibly due to radiology contrast, her renal function is acutely impaired. The pt was sent in from her hematologists office for necessary testing, nephrology evaluation, IVF and medical optimization prior to consideration for immune therapy. 1) Metastatic breast CA - workup underway. for port probably tomorrow. per oncology 2) ARF - nephrology input appreciated. is improving w IVF, this (+) poor PO intake certainly corroborates poor PO intake as culrpit 3) HTN - Lisinopril held in setting of ARF - readings acceptable 4) nausea - cause of dehydration. imrpvoing w hydration and w zofran - will give scheduled for ~24hrs then back to prn 5) recent lyme - sounds like probably was treated adequately except for ? adherence due to nausea. will investigate. if didn't get adequate treatment or still not clear that she ?did or didn't -- then might need to be clear for treatment with IV abx. 6) DVT proph - heparin SQ Full code
[2017-02-03] MEDS ORDERED: GADAVIST IV PRN (13:15)
--- NOTE | 2017-02-03 13:43 | DIAGNOSTIC IMAGING REPORT ---
MRI OF THE BRAIN WITHOUT AND WITH IV CONTRAST CLINICAL HISTORY: Breast cancer r/o metastasis mental status change COMPARISON STUDY: No previous studies for comparison. TECHNIQUE: Utilizing a 1.5 Briseida magnet and dedicated coil, multiplanar, multiecho imaging of the brain was performed pre and postcontrast administration. IV administration of 8.5 mL of Gadavist contrast was uneventful. FINDINGS: Diffusion-weighted images show no evidence for an acute ischemic insult. Several small foci of increased signal within the periventricular deep matter regions indicate minimal chronic small vessel change of aging. Ventricular system is midline. Postcontrast images are negative for an enhancing lesion. Sella and parasellar regions are unremarkable. IMPRESSION: Negative MRI brain for age. Electronically signed by: Alex Shankar M.D. 02/03/2017 1:42 PM Dictated Date/Time: 02/03/2017 1:40 PM
[2017-02-03] MEDS: ONDANSETRON INJ 8 MG in DEXTROSE 5% 50ML 50 ML IV SCH ×2 (16:32→22:53)
[2017-02-04] VITALS (11 sets, daily range): BP systolic 99–140; BP diastolic 65–85; PULSE 81–106; TEMP 36.9–37.6; O2SAT 91–97
[2017-02-04] MEDS: ONDANSETRON INJ 8 MG in DEXTROSE 5% 50ML 50 ML IV SCH ×2 (05:29→11:03)
[2017-02-04] MEDS: HEPARIN SOD 5000 UNIT/0.5 ML CARP SQ SCH ×3 (05:29→21:15)
[2017-02-04] MEDS ORDERED: PROPOFOL IV EMULSION 10 MG/ML 20 ML VIAL IV ONE (06:26)
[2017-02-04] MEDS ORDERED: MIDAZOLAM HCL 1 MG/ML 2ML VIAL ONE (06:26)
[2017-02-04] MEDS ORDERED: FENTANYL CITRATE INJ 50 MCG/1 ML 2 ML VIAL ONE (06:26)
[2017-02-04] MEDS ORDERED: CONRAY 60% 50 ML VIAL ONE (06:52)
[2017-02-04] MEDS ORDERED: LIDOCAINE/EPINEPHRINE 1% 20 ML VIAL ONE (06:52)
[2017-02-04] MEDS ORDERED: CEFAZOLIN SOD 1 GM VIAL ONE ×2 (06:53→07:39)
[2017-02-04] MEDS ORDERED: BUPIVACAINE 0.5 % 5 MG/1 ML MPF 30ML VIAL ONE (06:53)
[2017-02-04] MEDS ORDERED: HEPARIN SOD (PORCINE) 1000 UNIT/ML 10 ML VIAL ONE (06:54)
--- NOTE | 2017-02-04 07:22 | Progress Note ---
Progress Note Date of Service Feb 04, 2017. Progress Note Pt seen and examined today. No changes. For port a cath left side, possible right.
[2017-02-04] MEDS ORDERED: ONDANSETRON INJ 2 MG/ML 2 ML VIAL ONE (07:39)
[2017-02-04] MEDS ORDERED: PROMETHAZINE HCL INJ 6.25 MG in SODIUM CHLORIDE 0.9% 50ML 50 ML IV PRN (07:45)
[2017-02-04] MEDS ORDERED: FENTANYL CITRATE INJ 50 MCG/1 ML 2 ML VIAL IV PRN (07:45)
[2017-02-04] MEDS ORDERED: EpHEDrine SULFATE INJ 50 MG/ML AMP IV PRN (07:45)
[2017-02-04] MEDS ORDERED: ONDANSETRON INJ 2 MG/ML 2 ML VIAL IV PRN (07:45)
[2017-02-04] MEDS ORDERED: ATROPINE SULFATE 0.1 MG/ML 5ML SYR IV PRN (07:45)
--- NOTE | 2017-02-04 08:20 | [facility] Post Operative Brief Note ---
Immediate Operative Summary Operative Date Feb 04, 2017. Pre-Operative Diagnosis Metastatic breast cancer Post-Operative Diagnosis Same as pre-operative diagnosis Procedure(s) Performed placement of right subclavian venous port a cath Surgeon Dr. Kaylen Reyes Sisal Picker Surgeon(s) None Estimated Blood Loss 5 cc Findings unable to thread wire on left side (vein accessed on pass 3) Port placed on right side Specimens None per surgeon Drains none Anesthesia local and IV sedation Complication(s) None Disposition Recovery Room / PACU
[2017-02-04] MEDS ORDERED: HYDROCODONE/ACETAMOPHEN 5/325MG TAB PO PRN ×2 (08:30)
--- NOTE | 2017-02-04 08:42 | DIAGNOSTIC IMAGING REPORT ---
CHEST 1 VIEW FRONTAL CLINICAL HISTORY: A PORT PLACEMENT Fluoroscopy time: 4 seconds. FINDINGS: 2 fluoroscopic spot images of the right chest were submitted. There is a right Port-A-Cath. The tip terminates at the expected location of the superior cavoatrial junction. IMPRESSION: Fluoroscopy of right or right subclavian Port-A-Cath placement. Electronically signed by: Driss Maloney M.D. 02/04/2017 8:41 AM Dictated Date/Time: 02/04/2017 8:40 AM
--- NOTE | 2017-02-04 08:43 | DIAGNOSTIC IMAGING REPORT ---
CHEST ONE VIEW PORTABLE HISTORY: s/p port placement COMPARISON: Chest 01/04/2017. FINDINGS: Right subclavian Port-A-Cath. The tip terminates at the expected location of the superior cavoatrial junction. The heart is normal in size. No pneumothorax. Trace left pleural effusion has improved. IMPRESSION: 1. Right subclavian Port-A-Cath. The tip terminates at the superior cavoatrial junction. No pneumothorax. 2. Trace left pleural effusion which has improved. Electronically signed by: Driss Maloney M.D. 02/04/2017 8:42 AM Dictated Date/Time: 02/04/2017 8:41 AM
--- NOTE | 2017-02-04 08:55 | Anesthesiology Progress Note ---
Anesthesia Post Op Note Date & Time Feb 04, 2017 at 08:55 Vital Signs Pain Intensity: 0 Vital Signs Past 12 Hours Date Time Temp Pulse Resp B/P (MAP) Pulse Ox O2 Delivery O2 Flow Rate FiO2 02/04/17 08:45 36.3 98 14 121/76 97 Room Air 02/04/17 08:40 100 13 107/71 98 Room Air 02/04/17 08:30 108 20 111/84 100 Room Air 02/04/17 08:23 36.3 115 16 138/82 98 Room Air 02/04/17 04:00 37.1 91 16 120/76 (91) 96 Room Air 02/04/17 01:24 37.6 106 16 129/85 (100) 93 Room Air 02/03/17 23:59 Room Air Notes Mental Status: alert / awake / arousable, participated in evaluation Pt Amnestic to Procedure: Yes Nausea / Vomiting: adequately controlled Pain: adequately controlled Airway Patency, RR, SpO2: stable & adequate BP & HR: stable & adequate Hydration State: stable & adequate Anesthetic Complications: no major complications apparent
[2017-02-04] MEDS ORDERED: DEXAMETHASONE 4 MG TAB PO ONE ×2 (09:00→22:00)
[2017-02-04 10:10] LABS: BUN/CREATININE RATIO 16.5 (10-20); CALCIUM 8.6 mg/dl (8.5-10.1); CREATININE 1.3 mg/dl (0.60-1.20); POTASSIUM 3.9 mmol/L (3.5-5.1)
--- NOTE | 2017-02-04 10:11 | Hematology/Oncology Prog Note ---
Hematology/Onc Progress Note Date of Service Feb 04, 2017. Diagnoses Metastatic breast carcinoma Recent renal failure Medications Medications Administered Medications (Trade) Dose Ordered Sig/Ruiz Route Start Time Stop Time Status Last Admin Dose Admin Sodium Chloride 1,000 ml @ 150 mls/hr Q6H40M IV 02/02/17 12:45 02/03/17 02:04 DC 02/02/17 20:23 150 MLS/HR Perflutren Lipid Microsphere (Definity) 2 ml ONE ONCE IV 02/02/17 13:45 02/02/17 13:46 DC 02/02/17 13:45 2 ML Ondansetron HCl (Zofran Inj) 4 mg Q6H PRN IV 02/03/17 06:45 02/03/17 09:53 DC 02/03/17 06:43 4 MG Ondansetron HCl (Zofran Inj) 8 mg 1015 ONCE IV 02/03/17 10:15 02/03/17 10:16 DC 02/03/17 11:09 8 MG Ondansetron HCl 8 mg/Dextrose 54 ml @ 216 mls/hr Q6H IV 02/03/17 17:00 02/04/17 11:14 02/04/17 05:29 216 MLS/HR Lidocaine/ Epinephrine (Xylocaine/Epine 1% Inj) 20 ml STK-MED ONCE .ROUTE 02/04/17 06:52 02/04/17 06:53 DC 02/04/17 08:25 20 ML Bupivacaine HCl (Marcaine 0.5% MPF Inj) 30 ml STK-MED ONCE .ROUTE 02/04/17 06:53 02/04/17 06:54 DC 02/04/17 08:26 30 ML Heparin Sodium (Porcine) (Heparin 100 Unit/ml 5ml Flush) 30 ml STK-MED ONCE .ROUTE 02/04/17 07:08 02/04/17 07:09 DC 02/04/17 08:26 9 ML Subjective Head MRI is normal. She continues to have some mild nausea. Blood work from this morning is pending. She offers really no new complaints. Review of Systems: Constitutional: Negative for night sweats, or fever Eyes: Negative for event change of vision ENT: Negative for epistaxis, nasal discharge, sore throat, or deafness Cardiovascular: Negative for chest pain, palpitations, dizziness, diaphoresis Respiratory: Negative for new shortness of breath,hemoptysis, or purulent cough. He remains however mildly short of breath as before. Gastrointestinal: Negative for diarrhea, hematemesis, melena, she continues to have some nausea nausea, no vomiting, or dyspepsia Integumentary (skin): Negative for rash or jaundice discoloration Genitourinary: Negative for urinary frequency, hematuria, or dysuria Neurological: Negative for weakness, seizure activity, headache, or dizziness Lymphatic/Hematologic: Negative for petechiae, bleeding or new adenopathy Musculoskeletal: Negative for new joint or back pain Allergic/Immunologic: Negative for unusual rash or pruritis. Vital Signs Vital Signs Past 12 Hours Date Time Temp Pulse Resp B/P (MAP) Pulse Ox O2 Delivery O2 Flow Rate FiO2 02/04/17 09:38 37.4 101 18 140/84 (102) 97 Room Air 02/04/17 09:05 37.0 97 20 123/82 (96) 97 Room Air 02/04/17 08:45 36.3 98 14 121/76 97 Room Air 02/04/17 08:40 100 13 107/71 98 Room Air 02/04/17 08:30 108 20 111/84 100 Room Air 02/04/17 08:23 36.3 115 16 138/82 98 Room Air 02/04/17 04:00 37.1 91 16 120/76 (91) 96 Room Air 02/04/17 01:24 37.6 106 16 129/85 (100) 93 Room Air 02/03/17 23:59 Room Air Physical Exam Constitutional: vitals are stable. Performance status is 2.0 on an ECOG scale Eyes: Eyes are FELISA EOMI without conjuctival erythema or icterus. ENT: External examination was negative for masses. Neck: Negative for masses or palpable thyromegaly Respiratory: Lung sounds were generally clear bilaterally sounds were decreased at the left base Cardiovascular: Heart was RRR without significant murmur, gallops aoe rubs Gastrointestinal: No palpable hepatic or splenomegaly. The abdomen was soft with normal bowel sounds. Lymphatic system: there was no palpable peripheral lymphadenopathy Musculoskeletal System: The musculoskeletal system seemed concordant with age. A port is now in place in the right subclavian vein. Skin: The skin was negative for jaundice. Neurologic exam: The exam was negative for any focal findings. Deep tendon reflexes were equal and symmetrical. Psychiatric exam: Was essentially negative with normal mood and effect. 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 Head MRI is negative. Appreciate Dr. Reyes's prompt insertion of a subcutaneous port. Blood work is pending from today. Anticipate therapy tomorrow then with Pertuzumab, Traztuzumab and Taxol. This regimen as well as its potential side effects were all reviewed with the patient in the clinic on the day of admission. We will write for 20 mg of oral Decadron this evening as well as tomorrow morning in preparation for tomorrow's anticipated therapy. A consent form for chemotherapy was signed today and orders will be submitted in the morning to pharmacy. Unless hospitalist and consultants feel otherwise I believe that she can be discharged following tomorrow's therapy and we'll arrange for follow-up in our clinic in one week to continue the weekly Taxol. The Perjata and Herceptin are given every 3 weeks. Finally I would recommend Reglan 10 mg 4 times a day po for nausea (before meals and at bedtime). Appreciate everyone's help.
--- NOTE | 2017-02-04 10:31 | Nephrology Progress Note ---
Nephrology Progress Note Date of Service Feb 04, 2017. Chief Complaint Follow up evaluation of acute on chronic kidney injury Subjective Mrs. Bueno was seen & examined in her hospital room this morning. Her was at bedside. The patient has nausea which has limited her oral fluid intake. She currently denies fever, abdominal pain or dyspnea. She has undergone R subclavian A-port placement and is scheduled to begin chemotherapy tomorrow. Head MRI report reviewed this am. No metastatic lesions reported. Review of Systems Constitutional: No fever Cardiovascular: No chest pain Respiratory: No dyspnea at rest Abdomen: + nausea, No pain, No vomiting Extremities: No leg edema A complete review of systems was performed. Pertinent positives are noted above. All other systems are negative. Vital Signs Last 8 Hrs Date Time Temp Pulse Resp B/P (MAP) Pulse Ox O2 Delivery O2 Flow Rate FiO2 02/04/17 09:38 37.4 101 18 140/84 (102) 97 Room Air 02/04/17 09:05 37.0 97 20 123/82 (96) 97 Room Air 02/04/17 08:45 36.3 98 14 121/76 97 Room Air 02/04/17 08:40 100 13 107/71 98 Room Air 02/04/17 08:30 108 20 111/84 100 Room Air 02/04/17 08:23 36.3 115 16 138/82 98 Room Air 02/04/17 04:00 37.1 91 16 120/76 (91) 96 Room Air I & O 24-Hour Column 02/05/17 08:00 Intake Total 550 ml Output Total 5 ml Balance 545 ml Last Recorded Weight Weight (Kilograms): 87.400 Physical Exam General Appearance: no apparent distress Head: normocephalic, atraumatic Eyes: PERRL Neck: no adenopathy Respiratory/Chest: lungs clear, no respiratory distress Cardiovascular: + tachycardia Abdomen/GI: + distended (hypoactive bowel sounds) Extremities/Musculoskelatal: no calf tenderness, no pedal edema Neurologic/Psych: alert Family History Significant maternal family history of breast cancer Social History Alcohol Use: none Marital Status: Housing Status: lives with family Lives in [place], [place] with her (Jaquan) Laboratory Results Past 24 Hours 02/04/17 09:30 Test 02/04/17 09:30 Anion Gap 10.0 mmol/L (3-11) Est Creatinine Clear Calc Drug Dose 47.6 ml/min Estimated GFR () 51.3 Estimated GFR (Non- 44.2 BUN/Creatinine Ratio 16.5 (10-20) Calcium Level 8.6 mg/dl (8.5-10.1) Phosphorus Level 3.0 mg/dl (2.5-4.9) Albumin 2.3 gm/dl (3.4-5.0) Allergies Coded Allergies: No Known Allergies (Unverified , 01/25/17) Medications Current Inpatient Medications Medications (Trade) Dose Ordered Sig/Ruiz Route Start Time Stop Time Status Last Admin Dose Admin Heparin Sodium (Porcine) (Heparin Sq 5000 Unit/0.5ml) 5,000 unit Q8H SQ 02/02/17 14:00 03/04/17 13:59 Tramadol HCl (Ultram Tab) 50 mg Q4H PRN PO 02/02/17 12:45 03/04/17 12:44 Ondansetron HCl 8 mg/Dextrose 54 ml @ 216 mls/hr Q6H IV 02/03/17 17:00 02/04/17 11:14 02/04/17 05:29 216 MLS/HR Ondansetron HCl 8 mg/Dextrose 54 ml @ 216 mls/hr Q6H PRN IV 02/04/17 12:00 03/06/17 11:59 Gadobutrol (Gadavist) 8 mmol UD PRN IV 02/03/17 13:15 02/07/17 13:14 Fentanyl Citrate (Fentanyl Inj) 50 mcg Q5M PRN IV 02/04/17 07:45 02/04/17 13:00 Ondansetron HCl (Zofran Inj) 4 mg ONE PRN IV 02/04/17 07:45 02/04/17 13:00 Promethazine HCl 6.25 mg/Sodium Chloride 50.25 ml @ 202 mls/hr ONE PRN IV 02/04/17 07:45 02/04/17 13:00 Ephedrine Sulfate (EpHEDrine SULFATE INJ) 5 mg Q5M PRN IV 02/04/17 07:45 02/04/17 13:00 Atropine Sulfate (Atropine Sulfate 0.1MG/Ml Inj) 0.5 mg Q1M PRN IV 02/04/17 07:45 02/04/17 13:00 Acetaminophen/ Hydrocodone Bitart ([place] 5/325 Tab) 1 tab Q4H PRN PO 02/04/17 08:30 02/18/17 08:29 Acetaminophen/ Hydrocodone Bitart ([place] 5/325 Tab) 2 tab Q4H PRN PO 02/04/17 08:30 02/18/17 08:29 Ranitidine HCl (zANTac TAB) 150 mg 1100 ONCE PO 02/04/17 11:00 02/04/17 11:01 Ranitidine HCl (zANTac TAB) 150 mg BID PO 02/04/17 20:00 03/06/17 19:59 Dexamethasone (Decadron Tab) 20 mg ONE ONCE PO 02/04/17 22:00 02/04/17 22:01 UNV Dexamethasone (Decadron Tab) 20 mg ONE ONCE PO 02/05/17 09:00 02/05/17 09:01 UNV Impression (1) Acute renal insufficiency (2) Hypertension (3) Metastatic breast cancer (4) Ascites (5) Pleural effusion, left Mrs. Bueno has metastatic breast cancer with a left sided pleural effusion, carcinomatosis and osteoblastic lesions. Treatment is being planned pending improvement of JASON. Baseline creatinine ~1.0 mg/dL. Kidneys are normal in appearance on recent CT imaging. Urinalysis is bland with acellular microscopy. Lisinopril is being held. Blood pressure remains acceptable. Her JASON is c/w decreased EAV and intravascular volume depletion versus ATN. Recommendations -- Kidney recovery has stalled. Creatinine remains 1.3 -- FeNa was 0.2%. I&O's have been matched. Patient has had poor oral fluid intake. CXR films from 02/03 reviewed this am - no CHF. Will resume gentle hydration w/ 0.9NS -- Monitor I&O's, serial PRP -- Continue to hold Lisinopril. Blood pressure remains acceptable
[2017-02-04] MEDS: SODIUM CHLORIDE 0.9% 1000ML 1,000 ML IV SCH ×2 (10:54→21:12)
[2017-02-04] MEDS ORDERED: RANITIDINE HCL 150 MG TAB PO ONE (11:00)
[2017-02-04] MEDS ORDERED: ONDANSETRON INJ 8 MG in DEXTROSE 5% 50ML 50 ML IV PRN (12:00)
--- NOTE | 2017-02-04 12:10 | OPERATIVE REPORT ---
DATE OF OPERATION: 02/04/2017 PREOPERATIVE DIAGNOSIS: Metastatic breast cancer. POSTOPERATIVE DIAGNOSIS: Same. OPERATIVE PROCEDURE: Placement of right subclavian venous Port-A-Cath attempt to the left side. SURGEON: Dr. Kaylen Reyes. ESTIMATED BLOOD LOSS: 5 mL IV FLUIDS: 700 mL ANESTHESIA: Local and IV sedation. COMPLICATIONS: None. SPECIMENS: None. OPERATIVE FINDINGS: Left subclavian vein accessed on third pass, wire unable to be passed. Port placed on the right side. INDICATIONS: Ms. Bueno is a 62-year-old woman with a history of prior left Port-A-Cath placement for her breast cancer. She is also status post bilateral mastectomies. She subsequently developed metastatic disease. She was consented regarding right or left port placement. PROCEDURE: The patient received Ancef preoperatively. After the induction of IV sedation and placement of sequential compression devices, she was positioned with a roll behind her back and her arms tucked. Her bilateral upper chest and neck were sterilely prepped and draped. She was positioned in Trendelenburg and local anesthesia was used on the left side. The left subclavian vein was accessed on the third pass. The wire was unable to be passed. At this point, decision was made to place the port on the right. The right subclavian vein was accessed on the first pass. A wire passed easily into the superior vena cava and this was confirmed on fluoroscopy. A transverse incision was made below this and an inferiorly based subcutaneous pocket created at with a Bard, 8-Bengali PowerPort was secured into this pocket with 0 Vicryl sutures in all 3 sides of the triangle. The catheter was then passed from the port site to the introducer site. The catheter was measured to appropriate position and the hub secured down. The catheter was then passed over the wire using the Seldinger technique. Kinks were removed from the clavicle. The port was then accessed and noted to both flush and draw back easily. The wound was irrigated. A total of 36 mL of local anesthesia were used throughout the procedure. The subcutaneous tissue was reapproximated with interrupted 3-0 Vicryl stitches. The skin was closed with running subcuticular 4-0 Vicryl suture. Dermabond was applied. She was awakened and taken to recovery in stable condition. I attest to the content of the Intraoperative Record and any orders documented therein. Any exception s are noted below.
--- NOTE | 2017-02-04 16:00 | Progress Note ---
Subjective Date of Service: Feb 04, 2017. Subjective Pt evaluation today including: conversation w/ patient, physical exam, chart review, lab review, review of inpatient medication list nausea better but still has sour stomach after further discussion she believes she took abot two weeks of BID meds for lyme. no other complaints, generally feeling better Review of Systems ROS otherwise negative except for as above Objective Vital Signs Date Time Temp Pulse Resp B/P (MAP) Pulse Ox O2 Delivery O2 Flow Rate FiO2 02/04/17 15:40 37.4 89 16 121/80 (94) 96 Room Air 02/04/17 12:04 36.9 94 16 99/65 (76) 91 02/04/17 09:38 37.4 101 18 140/84 (102) 97 Room Air 02/04/17 09:15 97 Room Air 02/04/17 09:05 37.0 97 20 123/82 (96) 97 Room Air 02/04/17 08:45 36.3 98 14 121/76 97 Room Air 02/04/17 08:40 100 13 107/71 98 Room Air 02/04/17 08:30 108 20 111/84 100 Room Air 02/04/17 08:23 36.3 115 16 138/82 98 Room Air 02/04/17 04:00 37.1 91 16 120/76 (91) 96 Room Air 02/04/17 01:24 37.6 106 16 129/85 (100) 93 Room Air 02/03/17 23:59 Room Air 02/03/17 19:34 37.3 91 20 119/79 (92) 97 Room Air 02/03/17 16:00 96 Room Air Physical Exam General Appearance: no apparent distress Eyes: EOMI ENT: hearing grossly normal Neck: trachea midline Respiratory/Chest: no respiratory distress, no accessory muscle use Neurologic/Psychiatric: wood heel flap trimmer II-XII nml as tested, alert, normal mood/affect Skin: normal color, warm/dry Laboratory Results Last 24 Hours Test 02/04/17 09:30 Sodium Level 144 mmol/L Potassium Level 3.9 mmol/L Chloride Level 109 mmol/L Carbon Dioxide Level 25 mmol/L Anion Gap 10.0 mmol/L Blood Urea Nitrogen 21 mg/dl Creatinine 1.30 mg/dl Est Creatinine Clear Calc Drug Dose 47.6 ml/min Estimated GFR () 51.3 Estimated GFR (Non- 44.2 BUN/Creatinine Ratio 16.5 Random Glucose 104 mg/dl Calcium Level 8.6 mg/dl Phosphorus Level 3.0 mg/dl Albumin 2.3 gm/dl Assessment and Plan 62 y/o F Hx stage 3 breast CA treated with B/L mastectomy, chemo, Herceptin, radiation 2013. The pt had recently developed fullness in her stomach and presented to her oncologist for evaluation. She was sent for an abdomen, pelvis CT which was unfortunately consistent with widespread metastatic disease including multiple osteoblastic lesions and ascites. The CT was followed by a PET and then paracentesis of the ascites. The results are consistent with recurrence and metastasis of breast CA. Additionally, and possibly due to radiology contrast, her renal function is acutely impaired. The pt was sent in from her hematologists office for necessary testing, nephrology evaluation, IVF and medical optimization prior to consideration for immune therapy. 1) Metastatic breast CA - workup underway. port in today no problems 2) ARF - nephrology input appreciated. is improving w IVF, this (+) poor PO intake certainly corroborates poor PO intake as culrpit 3) HTN - Lisinopril held in setting of ARF - readings continue to be acceptable 4) nausea - cause of dehydration. continue zofran, add H2, ongoing supportive care. improving 5) recent lyme - sounds like probably was treated adequately - would like to d/ w heme onc to confirm exactly what dosing was - but she notes she took entire course - likely has been treated, if not could easily give IV rocephin while inpatient 6) DVT proph - heparin SQ Full code
[2017-02-04] MEDS: RANITIDINE HCL 150 MG TAB PO SCH (21:12)
[2017-02-05] VITALS (23 sets, daily range): BP systolic 103–144; BP diastolic 66–90; PULSE 80–105; TEMP 36.6–37.5; O2SAT 91–97
[2017-02-05] MEDS ORDERED: CEFAZOLIN SOD 1000MG/55 ML D5W IV ONE (06:00)
[2017-02-05] MEDS: HEPARIN SOD 5000 UNIT/0.5 ML CARP SQ SCH ×2 (06:00→14:20)
[2017-02-05 06:19] LABS: MEAN CELL VOLUME 85.3 fL (80-100); MEAN CORPUSCULAR HEMOGLOBIN 26.8 pg (25-34); MEAN CORPUSCULAR HGB CONC 31.4 g/dl (32-36); MEAN PLATELET VOLUME 9.2 fL (7.4-10.4); PLATELET COUNT 166 K/uL (130-400); RED BLOOD COUNT 4.22 M/uL (4.2-5.4); WHITE BLOOD COUNT 16.95 K/uL (4.8-10.8)
[2017-02-05] MEDS: SODIUM CHLORIDE 0.9% 1000ML 1,000 ML IV SCH (06:28)
[2017-02-05 06:56] LABS: BUN/CREATININE RATIO 19.1 (10-20); CALCIUM 8.6 mg/dl (8.5-10.1); CREATININE 1.2 mg/dl (0.60-1.20); PHOSPHORUS 2.8 mg/dl (2.5-4.9); POTASSIUM 4.8 mmol/L (3.5-5.1)
[2017-02-05] MEDS: RANITIDINE HCL 150 MG TAB PO SCH ×2 (08:15→19:58)
--- NOTE | 2017-02-05 08:45 | HEME/ONC PROGRESS NOTE ---
DATE: 02/05/2017 DIAGNOSES: 1. Metastatic breast cancer. 2. Peritoneal carcinomatosis. HOSPITAL COURSE: Ms. Bueno is a pleasant 62-year-old female patient, who was originally diagnosed with bilateral breast cancer in 2013. She is followed with Dr. Pineda since that time and her treatment has been summarized in the previous clinical notes. About a month prior to admission, presents with abdominal fullness. A CT scan of the abdomen and pelvis revealed peritoneal metastasis with a small left pleural effusion and ascites. Paracentesis confirmed the diagnosis. More recently, she underwent PET scan which showed a diffuse osteoblastic metastasis. She will receive her initial course of salvage chemotherapy consisting of pertuzumab, trastuzumab and paclitaxel. Clinically doing much better, tolerating her diet. She is getting up and around. I believe the plan is to discharge her after she receives chemotherapy today. Nursing reports no overnight issues. PHYSICAL EXAMINATION: VITAL SIGNS: Temperature 37.2, pulse 105, respirations 20, blood pressure 131/82. SKIN: Without rash or lesion. HEENT: Oral mucosa without erythema or ulceration. NECK: Supple. HEART: Regular rate and rhythm. No clicks, rubs, murmurs or gallops. LUNGS: Clear to auscultation bilaterally. ABDOMEN: Soft, nontender, nondistended. EXTREMITIES: No clubbing, cyanosis or edema. NEUROLOGIC: Grossly intact. LABORATORY DATA: WBC count 16,150, hemoglobin 11.3, platelet count 166,000. Sodium 145, potassium 4.8, chloride 114, carbon dioxide 23, creatinine 1.20, BUN 23. Transaminases are pending. Albumin 2.2. IMPRESSION: 1. Metastatic breast cancer, HER-2/jeri-positive disease. 2. Elevated liver transaminases. 3. Hypoalbuminemia. PLAN: Proceed with double anti HER-2/jeri therapy and Taxol today. If tolerated from medical oncology standpoint, the patient could be discharged home. She seems to be in excellent spirits and wishes to continue her fight. Obviously, based on her albumin needs to improve for nutritional state with increased protein consumption. Again, Dr. Pineda will orchestrate the treatment today and ensure appropriate patient followup upon discharge. I have nothing further to add. Thank you for assisting us in the care of this very pleasant patient.
[2017-02-05] MEDS ORDERED: DEXAMETHASONE 4 MG TAB PO ONE (09:00)
--- NOTE | 2017-02-05 09:15 | Nephrology Progress Note ---
Nephrology Progress Note Date of Service Feb 05, 2017. Chief Complaint Follow up evaluation of acute on chronic kidney injury Subjective Mrs. Bueno was seen & examined in her hospital room this morning. Her was present at bedside. The patient has tolerated gentle IV hydration. She currently denies dyspnea or worsening LE edema. She is scheduled to start chemotherapy today. Review of Systems Constitutional: No fever Cardiovascular: No chest pain Respiratory: No dyspnea at rest Abdomen: + nausea, No pain, No vomiting Extremities: No leg edema A complete review of systems was performed. Pertinent positives are noted above. All other systems are negative. Vital Signs Last 8 Hrs Date Time Temp Pulse Resp B/P (MAP) Pulse Ox O2 Delivery O2 Flow Rate FiO2 02/05/17 08:30 96 Room Air 02/05/17 07:38 37.2 105 20 131/82 (98) 96 Room Air 02/05/17 04:28 36.6 80 20 144/79 (100) 97 Room Air Last Recorded Weight Weight (Kilograms): 89.700 Physical Exam General Appearance: no apparent distress Head: normocephalic, atraumatic Eyes: PERRL, EOMI Respiratory/Chest: lungs clear Cardiovascular: regular rate, rhythm Abdomen/GI: non tender (hypoactive bowel sounds) Extremities/Musculoskelatal: no pedal edema Neurologic/Psych: alert, oriented x 3 Family History Significant maternal family history of breast cancer Social History Alcohol Use: none Marital Status: Housing Status: lives with family Lives in [place], [place] with her (Jaquan) Laboratory Results Past 24 Hours 02/05/17 05:47 02/04/17 09:30 02/05/17 05:47 Test 02/04/17 09:30 02/05/17 05:47 Anion Gap 10.0 mmol/L (3-11) 8.0 mmol/L (3-11) Est Creatinine Clear Calc Drug Dose 47.6 ml/min 51.6 ml/min Estimated GFR () 51.3 56.5 Estimated GFR (Non- 44.2 48.7 BUN/Creatinine Ratio 16.5 (10-20) 19.1 (10-20) Calcium Level 8.6 mg/dl (8.5-10.1) 8.6 mg/dl (8.5-10.1) Phosphorus Level 3.0 mg/dl (2.5-4.9) 2.8 mg/dl (2.5-4.9) Albumin 2.3 gm/dl (3.4-5.0) 2.2 gm/dl (3.4-5.0) Red Blood Count 4.22 M/uL (4.2-5.4) Mean Corpuscular Volume 85.3 fL (80-100) Mean Corpuscular Hemoglobin 26.8 pg (25-34) Mean Corpuscular Hemoglobin Concent 31.4 g/dl (32-36) RDW Standard Deviation 56.9 fL (36.4-46.3) RDW Coefficient of Variation 18.3 % (11.5-14.5) Mean Platelet Volume 9.2 fL (7.4-10.4) Allergies Coded Allergies: No Known Allergies (Unverified , 01/25/17) Medications Current Inpatient Medications Medications (Trade) Dose Ordered Sig/Ruiz Route Start Time Stop Time Status Last Admin Dose Admin Heparin Sodium (Porcine) (Heparin Sq 5000 Unit/0.5ml) 5,000 unit Q8H SQ 02/02/17 14:00 03/04/17 13:59 Tramadol HCl (Ultram Tab) 50 mg Q4H PRN PO 02/02/17 12:45 03/04/17 12:44 Ondansetron HCl 8 mg/Dextrose 54 ml @ 216 mls/hr Q6H PRN IV 02/04/17 12:00 03/06/17 11:59 Gadobutrol (Gadavist) 8 mmol UD PRN IV 02/03/17 13:15 02/07/17 13:14 Acetaminophen/ Hydrocodone Bitart ([place] 5/325 Tab) 1 tab Q4H PRN PO 02/04/17 08:30 02/18/17 08:29 Acetaminophen/ Hydrocodone Bitart ([place] 5/325 Tab) 2 tab Q4H PRN PO 02/04/17 08:30 02/18/17 08:29 Ranitidine HCl (zANTac TAB) 150 mg BID PO 02/04/17 20:00 03/06/17 19:59 02/05/17 08:15 150 MG Sodium Chloride 1,000 ml @ 100 mls/hr Q10H IV 02/04/17 11:00 02/05/17 10:59 02/05/17 06:28 100 MLS/HR Impression (1) Acute renal insufficiency (2) Hypertension (3) Metastatic breast cancer (4) Ascites (5) Pleural effusion, left Mrs. Bueno has metastatic breast cancer with a left sided pleural effusion, carcinomatosis and osteoblastic lesions. She presented to the hospital w/ JASON due to dehydration (poor oral intake, FeNa < 0.2%). Urinalysis was normal. Urine microscopy was acellular. Abdominal CT was negative for obstruction. Kidney function is gradually improving w/ IV hydration. Recommendations -- Kidney function is gradually improving with IV hydration. -- FeNa was 0.2%. I&O's have been matched. Patient has had poor oral fluid intake. CXR films from 02/03 reviewed this am - no CHF. Will continue gentle hydration w/ 0.9NS -- Monitor I&O's, serial PRP -- Continue to hold Lisinopril. Blood pressure remains acceptable
[2017-02-05] MEDS ORDERED: SODIUM CHLORIDE 0.9% 1000ML 1,000 ML IV SCH (11:00)
[2017-02-05] MEDS ORDERED: FAMOTIDINE 20 MG TAB PO SCH (11:00)
[2017-02-05] MEDS ORDERED: DEXAMETHASONE 4 MG TAB PO SCH (11:00)
[2017-02-05] MEDS ORDERED: SODIUM CHLORIDE 0.9% IV SCH ×3 (11:00→13:00)
[2017-02-05] MEDS ORDERED: CETIRIZINE HCL 10 MG TAB PO SCH (11:00)
[2017-02-05] MEDS ORDERED: PERTUZUMAB IV SCH ×2 (11:00→13:00)
[2017-02-05] MEDS ORDERED: TRASTUZUMAB IV SCH (12:00)
[2017-02-05] MEDS ORDERED: SOD CHL IV SCH ×2 (13:30)
[2017-02-05] MEDS ORDERED: PACLITAXEL IV SCH ×2 (13:30)
[2017-02-05] MEDS ORDERED: POLYOLEFIN IV SCH ×2 (13:30)
[2017-02-05] MEDS ORDERED: METHYLPREDNISOLONE 125 MG in SYRINGE 0 ML IV PRN (13:45)
[2017-02-05] MEDS ORDERED: HYDROCORTISONE IV 100 MG in SYRINGE 0 ML IV PRN (13:45)
[2017-02-05] MEDS ORDERED: DiphenhydrAMINE HCL 50 MG/ML VIAL IV PRN (13:45)
--- NOTE | 2017-02-05 16:29 | Family Medicine Progress Note ---
Progress Note Date of Service Feb 05, 2017. Subjective Pt evaluation today including: conversation w/ patient, conversation w/ family Voiding: no voiding problems, no incontinence Patient seen this morning prior to chemo. She was feeling ok, denied any pain or discomfort. Was eager to get started with chemo. Constitutional: No fever, No chills Eyes: No worsening of vision, No eye pain ENT: No hearing loss Cardiovascular: No chest pain Abdomen: No pain, No nausea Musculoskeletal: No joint pain Female : No dysuria Neurologic: No memory loss Psychiatric: No depression symptoms Heme: No abnormal bleeding/bruising Endo: No fatigue Skin: No rash All Other Systems: Reviewed and Negative Medications Current Inpatient Medications Medications (Trade) Dose Ordered Sig/Ruiz Route Start Time Stop Time Status Last Admin Dose Admin Heparin Sodium (Porcine) (Heparin Sq 5000 Unit/0.5ml) 5,000 unit Q8H SQ 02/02/17 14:00 03/04/17 13:59 Tramadol HCl (Ultram Tab) 50 mg Q4H PRN PO 02/02/17 12:45 03/04/17 12:44 Ondansetron HCl 8 mg/Dextrose 54 ml @ 216 mls/hr Q6H PRN IV 02/04/17 12:00 03/06/17 11:59 Gadobutrol (Gadavist) 8 mmol UD PRN IV 02/03/17 13:15 02/07/17 13:14 Acetaminophen/ Hydrocodone Bitart ([place] 5/325 Tab) 1 tab Q4H PRN PO 02/04/17 08:30 02/18/17 08:29 Acetaminophen/ Hydrocodone Bitart ([place] 5/325 Tab) 2 tab Q4H PRN PO 02/04/17 08:30 02/18/17 08:29 Ranitidine HCl (zANTac TAB) 150 mg BID PO 02/04/17 20:00 03/06/17 19:59 02/05/17 08:15 150 MG Trastuzumab 696 mg/Sodium Chloride 283.1429 ml @ 188.... TODAY@1200 IV 02/05/17 12:00 02/05/17 21:00 02/05/17 15:48 188.762 MLS/HR Dexamethasone (Decadron Tab) 10 mg TODAY@1100 PO 02/05/17 11:00 02/05/17 21:00 02/05/17 12:51 10 MG Famotidine (Pepcid Tab) 20 mg TODAY@1100 PO 02/05/17 11:00 02/05/17 21:00 02/05/17 12:51 20 MG Paclitaxel 150 mg/ Sodium Chloride 275 ml @ 275 mls/hr TODAY@1330 IV 02/05/17 13:30 02/05/17 21:00 Cetirizine HCl (zyrTEC TAB) 10 mg TODAY@1100 PO 02/05/17 11:00 02/05/17 21:00 02/05/17 12:51 10 MG Sodium Chloride 1,000 ml @ 100 mls/hr Q10H IV 02/05/17 11:00 03/07/17 10:59 02/05/17 11:05 100 MLS/HR Pertuzumab 840 mg/ Sodium Chloride 278 ml @ 278 mls/hr TODAY@1300 IV 02/05/17 13:00 02/05/17 21:00 02/05/17 14:17 278 MLS/HR Diphenhydramine HCl (Benadryl Inj) 50 mg UD PRN IV 02/05/17 13:45 02/05/17 23:59 Methylprednisolone Sodium Succinate 125 mg/Syringe 2 ml @ 1.5 mls/min UD PRN IV 02/05/17 13:45 02/05/17 23:59 Hydrocortisone Sodium Succinate 100 mg/Syringe 2 ml @ 4 mls/min UD PRN IV 02/05/17 13:45 02/05/17 23:59 Objective Vital Signs Date Time Temp Pulse Resp B/P (MAP) Pulse Ox O2 Delivery O2 Flow Rate FiO2 02/05/17 16:15 36.6 93 18 115/71 (86) 91 Room Air 02/05/17 15:45 36.6 92 91 112/74 (87) 94 02/05/17 15:37 37.0 90 18 111/73 (86) 93 Room Air 02/05/17 15:15 92 20 120/79 (93) 93 02/05/17 15:00 94 Room Air 02/05/17 14:59 90 18 124/71 (88) 95 Room Air 02/05/17 14:45 91 20 109/68 (82) 95 Room Air 02/05/17 14:30 86 94 111/76 (88) 94 Room Air 02/05/17 14:15 36.6 94 20 116/76 (89) 96 Room Air 02/05/17 11:29 37.2 96 16 103/66 (78) 94 Room Air 02/05/17 08:30 96 Room Air 02/05/17 07:38 37.2 105 20 131/82 (98) 96 Room Air 02/05/17 04:28 36.6 80 20 144/79 (100) 97 Room Air 02/05/17 00:00 Room Air 02/04/17 23:23 37.4 81 18 102/69 (80) 95 Room Air 02/04/17 21:36 37.4 02/04/17 19:26 37.6 91 20 124/79 (94) 95 Room Air Physical Exam General Appearance: WD/WN, no apparent distress Eyes: normal inspection, PERRL ENT: hearing grossly normal Neck: supple, no JVD Respiratory/Chest: lungs clear, normal breath sounds, no respiratory distress Cardiovascular: regular rate, rhythm, no murmur Abdomen: normal bowel sounds, non tender, soft Extremities: non-tender, no pedal edema Neurologic/Psychiatric: alert, normal mood/affect, oriented x 3 Skin: no rash Lymphatic: no adenopathy Laboratory Results Last 24 Hours Test 02/05/17 05:47 White Blood Count 16.95 K/uL Red Blood Count 4.22 M/uL Hemoglobin 11.3 g/dL Hematocrit 36.0 % Mean Corpuscular Volume 85.3 fL Mean Corpuscular Hemoglobin 26.8 pg Mean Corpuscular Hemoglobin Concent 31.4 g/dl RDW Standard Deviation 56.9 fL RDW Coefficient of Variation 18.3 % Platelet Count 166 K/uL Mean Platelet Volume 9.2 fL Sodium Level 145 mmol/L Potassium Level 4.8 mmol/L Chloride Level 114 mmol/L Carbon Dioxide Level 23 mmol/L Anion Gap 8.0 mmol/L Blood Urea Nitrogen 23 mg/dl Creatinine 1.20 mg/dl Est Creatinine Clear Calc Drug Dose 51.6 ml/min Estimated GFR () 56.5 Estimated GFR (Non- 48.7 BUN/Creatinine Ratio 19.1 Random Glucose 135 mg/dl Calcium Level 8.6 mg/dl Phosphorus Level 2.8 mg/dl Albumin 2.2 gm/dl Assessment and Plan 62 yo F with new dx of metastatic breast Ca, s/p port placement, day 1 chemotherapy. Metastatic breast cancer, day 1 of inpatient chemotherapy - Per Dr Pineda - If pt feels well in the afternoon, we will discharge her with an Rx for Reglan Left pleural effusion - Seems stable for now, will continue to monitor Acute renal insufficiency - Cr stable - Nephrology following - Will continue to hold Lisinopril Hypertension - Well controlled, will continue to monitor DISPO: Will determine this PM after has chemo. VTE: Heparin CODE STATUS: FULL Resident Physician Supervision Note: I was present with Dr. Curiel during the history and exam. I discussed the case with the resident and agree with the findings and plan as documented in the note. Any exceptions or clarifications are listed here: Pleasant 62 y/o female with newly diagnosed metastatic breast CA, starting chemotherapy today as an inpatient. Will reassess patient later this afternoon to see how she tolerated chemotherapy. Documented By: Ed Ray Resident Tracking Resident Involvement: Resident Care Provided Care Provided: Adult Hospital Medicine
[2017-02-05] MEDS ORDERED: METO-157 PO ×2 (17:24)
[2017-02-05] MEDS ORDERED: ZNTT/150 PO ×2 (17:24)
--- NOTE | 2017-02-05 17:27 | Discharge Instructions ---
Discharge Instructions Date of Service Feb 05, 2017. Admission Reason for Admission: Renal Insufficiency, Metastatic Breast Cancer Discharge Discharge Diagnosis / Problem: Port placement, Chemotherapy initiation Discharge Goals Goal(s): Improve disease control Activity Recommendations Activity Limitations: per Instructions/Follow-up section May Resume Sexual Activity: when tolerated Shower/Bathe: no limitations Driving or Machine Use: no limitations Slowly increase activity as tolerated. Make sure to stay hydrated. . Instructions / Follow-Up Instructions / Follow-Up Follow up with Dr Pineda's office as arranged. We have held the medication LISINOPRIL which is for your blood pressure - make sure to follow up with your PCP about when to restart it. You will need a blood test to check on your kidney function before restarting. Current Hospital Diet Patient's current hospital diet: Regular Diet Discharge Diet Recommended Diet: Regular Diet Procedures Procedures Performed: Placement of right subclavian venous port a cath Pending Studies Studies pending at discharge: no Medical Emergencies . Who to Call and When: Medical Emergencies: If at any time you feel your situation is an emergency, please call 911 immediately. . Non-Emergent Contact Non-Emergency issues call your: Primary Care Provider, Oncologist . . "Provider Documentation" section prepared by Rani Curiel. . VTE Core Measure Inpt VTE Proph given/why not?: SCD's
--- NOTE | 2017-02-06 13:54 | Discharge Summary ---
Discharge Summary Date of Service Feb 05, 2017. (Rani Curiel MD) Discharge Summary Admission Date: Feb 02, 2017 at 11:08 Discharge Date: Feb 05, 2017 Discharge Disposition: Home Principal Diagnosis: Metastatic breast cancer Immunizations: Have You Had Influenza Vaccine: N/A History of Tetanus Vaccine?: utd History of Pneumococcal: No History of Hepatitis B Vaccine: No Procedures: Port placed for chemo, First dose of chemo initiated 02/05/17 ECHO: * -- Conclusions -- * 1. Normal left ventricular size and systolic function. EF 60-65%. No regional wall motion abnormalities. No left ventricular hypertrophy. * 2. No significant valvular abnormalities. * 3. Normal estimated right ventricular systolic pressure; 20 mmHg. * 4. Technically difficult study, enhanced with IV Definity. * 5. No prior study available for comparison. (Rani Curiel MD) Medication Reconciliation New Medications: Metoclopramide (Reglan) 10 Mg Tab 10 MG PO Q6H for 10 Days, #40 TAB NAUSEA Ranitidine (Zantac) 150 Mg Tab 1 TAB PO BID for 30 Days, #60 TAB Continued Medications: Anastrozole (Arimidex) 1 Mg Tab 1 TAB PO QAM for 90 Days, #90 TAB 1 Refill Calcium/Vitamin D (Os-Angel 500 Plus D) Tab 1 TAB PO BID, TAB Multivitamin (Multivitamin) Tab 1 TAB PO DAILY, TAB Discontinued Medications: Lisinopril (Lisinopril) 20 Mg Tab 20 MG PO QAM for 30 Days, TAB 3 Refills Discharge Exam Review of Systems: Constitutional: No fever, No chills, No sweats, No weight loss, No weakness Eyes: No worsening of vision ENT: No hearing loss Respiratory: No cough, No sputum, No wheezing Cardiovascular: No chest pain Abdomen: + nausea (intermittent but ate well), No pain, No vomiting Musculoskeletal: No joint pain Genitourinary - Female: No dysuria Neurologic: No paralysis, No weakness Psychiatric: No depression symptoms Endocrine: No fatigue Hematologic / Lymphatic: No abnormal bleeding/bruising Integumentary: No rash Physical Exam: General Appearance: WD/WN, no apparent distress Eyes: normal inspection, PERRL ENT: hearing grossly normal Neck: supple, no JVD Respiratory/Chest: chest non-tender, lungs clear Cardiovascular: regular rate, rhythm, no murmur, normal peripheral pulses Abdomen / GI: normal bowel sounds, non tender, soft Extremities: no pedal edema Neurologic/Psychiatric: alert, normal mood/affect, normal reflexes Skin: no rash Lymphatic: no adenopathy (Rani Curiel MD) Hospital Course DATE OF SERVICE: 02/05/2017 HPI: 62 y/o F Hx stage 3 breast CA treated with B/L mastectomy, chemo, Herceptin, radiation 2013. The pt had recently developed fullness in her stomach and presented to her oncologist for evaluation. She was sent for an abdomen, pelvis CT which was unfortunately consistent with widespread metastatic disease including multiple osteoblastic lesions and ascites. The CT was followed by a PET and then paracentesis of the ascites. The results are consistent with recurrence and metastasis of breast CA. Additionally, and possibly due to radiology contrast, her renal function is acutely impaired. The pt was sent in from her hematologists office for necessary testing, nephrology evaluation, IVF and medical optimization prior to consideration for immune therapy. She has no complaints at the time of admission - denies CP, SOB , abdominal pain, N/V, dysuria or fevers. HOSPITAL COURSE: 62 yo F with new dx of metastatic breast Ca, s/p port placement, day 1 chemotherapy. Metastatic breast cancer, day 1 of inpatient chemotherapy - Per Dr Pineda - Did well during chemo infusion, so was discharged in evening Left pleural effusion - Seems stable for now, will continue to monitor Acute renal insufficiency - Cr stable - Nephrology following - Will continue to hold Lisinopril Hypertension - Well controlled, will continue to monitor DISPO: Discharged 02/05/17 VTE: Heparin CODE STATUS: FULL Total Time Spent: Greater than 30 minutes This includes examination of the patient, discharge planning, medication reconciliation, and communication with other providers. (Rani Curiel MD) Resident Physician Supervision Note: I was present with Dr. Curiel during the history and exam. I discussed the case with the resident and agree with the findings and plan as documented in the note. Any exceptions or clarifications are listed here: [None] Documented By: Ed Ray Total Time Spent: Less than 30 minutes (Ed Ray,D.O.) Discharge Instructions Please refer to the electronic Patient Visit Report (Discharge Instructions) for additional information. (Rani Curiel MD) Follow-Up With Dr Pineda as arranged. (Rani Curiel MD)
[2017-02-15] MEDS ORDERED: ZNT150 PO (12:53)
[2017-02-15] MEDS ORDERED: METO-157 PO (12:53)
== END 2017-02-05 20:10 | disposition home or self-care (01) | DRG 598 ==
LOC: C.4E 11:08
PROVIDERS: ADMIT Internal Medicine; ATTEND Family Medicine
PROC: 02HV33Z Insertion of Infusion Device into Superior Vena Cava, Percutaneous Approach (ICD-10-PCS; principal; 2017-02-04 07:30)
DX: C50.111 Malignant neoplasm of central portion of right female breast (principal); C78.6 Secondary malignant neoplasm of retroperitoneum and peritoneum; N17.9 Acute kidney failure, unspecified; J90 Pleural effusion, not elsewhere classified; R18.8 Other ascites; I10 Essential (primary) hypertension

== ENCOUNTER → 2017-02-09 | Day surgery (SDC) | payer BC ==
[~2017-02-09] VITALS: Ht 160 cm; Wt 90.0 kg
[~2017-02-09] MED LIST changes: +ACET-1256 PO; +ACETAMINOPHEN 500 MG TAB PO PRN; +METO-157 PO; +ZNT150 PO; +ZNTT/150 PO
[2017-02-09 09:45] VITALS: BP 120/85; PULSE 99; TEMP 37.2; O2SAT 97; Ht 160 cm; Wt 90.0 kg
[2017-02-09 10:33] LABS: INR 1.2 (0.9-1.1); PARTIAL THROMBOPLASTIN RATIO 1.1; PROTHROMBIN TIME (PATIENT) 12.6 SECONDS (9.0-12.0)
[2017-02-09 10:35] LABS: PLATELET COUNT 116 K/uL (130-400)
--- NOTE | 2017-02-09 11:48 | Discharge Instructions ---
Discharge Instructions Procedure Procedure Date: Feb 09, 2017. Reason for visit: Ascites, Breast Cancer. Discharge Discharge Date: Feb 09, 2017. Discharge Diagnosis: Ascites. Breast Cancer Instructions Activity Recommendations: 1 Day-May resume regular activity, 48 Hours of decreased exertion, 1 Day with no exercise/sex/sports, 1 Day with no driving/ machine use Return to School/Work: limitations (light activity x 48 hours) Recommended Home Diet: Resume Previous Diet Provider Instructions: Ultrasound guided lumbar puncture is performed in the left lower quadrant with removal of approximately 2.8 liters of straw-colored ascitic fluid. The procedure was well tolerated and without immediate complication. Allergies Coded Allergies: No Known Allergies (Unverified , 02/09/17) Albert Preciado Recommendations: Call your doctor if: * Temperature above 101 degrees * Pain not relieved by pain medicine ordered * There is increased drainage or redness from any incision * You have any unanswered questions or concerns. Your Doctors Instructions noted above were prepared by provider Melecio Schultz. Patient Signature Section: Patient Instructions Signature Page Sara Bueno Patient (or Guardian) Signature/Date: I have read and understand the instructions given to me by my caregivers. Caregiver/RN/Doctor Signature/Date: The above-named patient and/or guardian has received patient instructions on this date. + Original Patient Signature Page (only) stays with chart. Please make copy for patient.
[2017-02-09 12:00] VITALS: BP 134/80; PULSE 94; TEMP 36.8; O2SAT 96
--- NOTE | 2017-02-09 12:16 | DIAGNOSTIC IMAGING REPORT ---
PARACENTESIS UNDER ULTRASOUND GUIDANCE CLINICAL HISTORY: Breast cancer. Ascites. COMPARISON STUDY: Abdominal CT dated 01/17/2017. PROCEDURE: The risks, benefits, and alternatives to the procedure were discussed with the patient who voiced understanding. Written informed consent was obtained. Following real-time ultrasound localization of a suitable pocket of fluid in the left lower quadrant, the abdomen was prepped and draped in the usual sterile fashion. The skin and soft tissues were anesthetized with 1% lidocaine. The sheathed paracentesis was inserted and approximately 2.8 liters of straw-colored ascitic fluid was removed by vacuum suction. The procedure was well tolerated and without immediate complication. The patient left the department in satisfactory condition. IMPRESSION: Successful ultrasound-guided paracentesis with removal of approximately 2.8 liters of ascitic fluid. Electronically signed by: Melecio Schultz M.D. 02/09/2017 12:14 PM Dictated Date/Time: 02/09/2017 12:13 PM
[2017-02-09 12:30] VITALS: BP 151/72; PULSE 93; TEMP 37.3; O2SAT 95
[2017-02-09 13:00] VITALS: BP 136/81; PULSE 96; TEMP 37.1; O2SAT 98
== END | disposition home or self-care (01) ==
LOC: C.ACU 09:30
PROVIDERS: ATTEND Internal Medicine Hematology & Oncology
DX: R18.0 Malignant ascites (principal); C50.919 Malignant neoplasm of unspecified site of unspecified female breast

== ENCOUNTER 2017-02-18 18:19 | Inpatient (IN) | payer BC ==
[~2017-02-18] VITALS: Ht 160 cm; Wt 87.5 kg
[~2017-02-18 18:19] MED LIST changes: -ACET-1256 PO; -ACETAMINOPHEN 500 MG TAB PO PRN; -LSN20 PO; -ZNTT/150 PO
[2017-02-18] MEDS ORDERED: SODIUM CHLORIDE 0.9% 1000ML 500 ML IV ONE (18:40)
[2017-02-18] MEDS ORDERED: ACET-1256 PO (18:53)
--- NOTE | 2017-02-18 18:59 | EMERGENCY ROOM VISIT NOTE ---
History Report prepared by Ashley: Amarilis Escobar Under the Supervision of: Dr. Kevin Patel M.D. First contact with patient: 18:32 Chief Complaint: RESPIRATORY PROBLEMS Stated Complaint: SORE THROAT, DIFFICULTY BREATHING- STAGE 4 CA Nursing Triage Summary: Pt presents with cold sx, sore throat that started yesterday, worse today. Generalized weakness. N/V/D. Pt has breast ca with mets. Currently undergoing chemo, last tx was this past Sun. Gets chemo every Sun. History of Present Illness The patient is a 62 year old female who presents to the Emergency Room with complaints of worsening sore throat starting yesterday. Her states that she started to have cold symptoms yesterday. She is having difficulty talking because of her sore throat. She has had a fever, SOB, and weakness. They are concerned for pneumonia. She is not having abdominal pain or pain elsewhere. The patient has metastatic breast cancer and is currently undergoing chemotherapy. She had 3 liters of fluid removed from her stomach several days ago. She has a history of kidney problems and hypertension. Source of History: parent, spouse/significant other Onset: yesterday Position: throat Quality: other (sore) Timing: worsening Associated Symptoms: + fevers, + SOB, + weakness, No abdominal pain Review of Systems All systems have been listed, reviewed, and are negative other than those previously mentioned. Please see Additional Medical History Sheet. Past Medical & Surgical Medical Problems: (1) Acute renal insufficiency (2) ARF (acute renal failure) (3) Ascites (4) Bilateral breast cancer (5) Breast cancer (6) Hypertension (7) Metastatic breast cancer (8) Metastatic breast cancer (9) Pleural effusion, left (10) Sepsis associated hypotension Family History Cancer Social History Smoking Status: Never Smoker Alcohol Use: none Marital Status: Current/Historical Medications Scheduled Acetaminophen (Tylenol), 2 TABS PO DAILY Anastrozole (Arimidex), 1 MG PO QAM Calcium/Vitamin D (Os-Angel 500 Plus D), 1 TAB PO BID Multivitamin (Multivitamin), 1 TAB PO DAILY Ranitidine HCl (Ranitidine HCl), 150 MG PO DAILY Scheduled PRN Metoclopramide (Reglan), 10 MG PO Q6H PRN for Nausea Allergies Coded Allergies: No Known Allergies (Unverified , 02/18/17) Physical Exam Vital Signs Date Time Temp Pulse Resp B/P (MAP) Pulse Ox O2 Delivery O2 Flow Rate FiO2 02/18/17 21:45 132 20 90/56 95 Room Air 02/18/17 21:03 130 20 79/52 96 Room Air 02/18/17 20:23 135 20 85/54 98 Room Air 02/18/17 19:42 131 20 85/54 97 Room Air 02/18/17 19:08 134 20 79/54 100 Room Air 02/18/17 18:50 100 Room Air 02/18/17 18:37 132 02/18/17 18:23 97 Room Air 02/18/17 18:20 36.7 129 26 62/47 97 Room Air Physical Exam GENERAL: Patient appears guerrero, ill, and dehydrated. SKIN: No erythema, pallor, cyanosis or rash HEENT: Normal head, pupils equal, reactive to light and accommodation. Ears normal. Very dry mucous membranes with very red posterior oropharynx, no exudate seen, no tonsillar hypertrophy. Neck: Without adenopathy, no neck vein distention, no significant cervical lymphadenopathy. LUNGS: Clear to auscultation. No wheezes, no rales, no rhonchi. HEART: Rapid heart rate. No murmurs. No gallops. No rubs ABDOMEN: Moderate distension with ascites. No masses, no rebound, no hepatomegaly or splenomegaly. EXTREMITIES: No signs of trauma. 2+ nonpitting pretibial edema. No calf or thigh tenderness. NEUROLOGIC: Cranial nerves II-XII within normal limits. No gross motor sensory function deficits. Medical Decision & Procedures ER Provider Diagnostic Interpretation: X ray results are stated below per my interpretation and the radiologist's interpretation. SINGLE VIEW CHEST CLINICAL HISTORY: Sepsis. FINDINGS: An AP, portable, upright chest radiograph is compared to study dated 02/04/2017. Correlation is made with PET/CT dated 01/29/2017. The examination is degraded by portable technique and patient rotation. A right subclavian central venous infusion port is unchanged in position. The cardiomediastinal silhouette is unremarkable. Chronic interstitial thickening is unchanged. There is a small left pleural effusion with associated consolidation. This is unchanged from previous. The lungs are otherwise clear. No pneumothorax is seen. The skeletal structures are osteopenic. The bony thorax is grossly intact. IMPRESSION: 1. There is a small left pleural effusion with associated consolidation. This likely represents atelectasis and is similar to previous. Clinical correlation will be required. 2. The lungs are otherwise clear. Electronically signed by: Melecio Schultz M.D. 02/18/2017 7:15 PM Dictated Date/Time: 02/18/2017 7:12 PM Laboratory Results 02/18/17 19:00 Red Blood Count 4.03, Mean Corpuscular Volume 83.9, Mean Corpuscular Hemoglobin 27.5, Mean Corpuscular Hemoglobin Concent 32.8, Mean Platelet Volume 11.0 02/18/17 19:00 Test 02/18/17 19:00 02/18/17 19:01 02/18/17 20:00 02/18/17 20:19 White Blood Count 0.65 K/uL (4.8-10.8) Red Blood Count 4.03 M/uL (4.2-5.4) Hemoglobin 11.1 g/dL (12.0-16.0) Hematocrit 33.8 % (37-47) Mean Corpuscular Volume 83.9 fL (80-100) Mean Corpuscular Hemoglobin 27.5 pg (25-34) Mean Corpuscular Hemoglobin Concent 32.8 g/dl (32-36) Platelet Count 120 K/uL (130-400) Mean Platelet Volume 11.0 fL (7.4-10.4) RDW Standard Deviation 59.6 fL (36.4-46.3) RDW Coefficient of Variation 19.7 % (11.5-14.5) Nucleated RBC Absolute Count (auto) 0.14 K/uL (0-0) Neutrophils % (Manual) 5.5 % Lymphocytes % (Manual) 80.0 % Monocytes % (Manual) 9.7 % Eosinophils % (Manual) 1.2 % Basophils % (Manual) 2.4 % Promyelocytes % 0.6 % Blast Cells % 0.6 % Nucleated Red Blood Cells % 22.2 % Neutrophils # (Manual) 0.04 K/uL (1.4-6.5) Total Absolute Neutrophils 0.04 K/uL (1.4-6.5) Lymphocytes # (Manual) 0.52 K/uL (1.2-3.4) Total Absolute Lymphocytes 0.52 K/uL (1.2-3.4) Monocytes # (Manual) 0.06 K/uL (0.11-0.59) Eosinophils # (Manual) 0.01 K/uL (0-0.5) Basophils # (Manual) 0.02 K/uL (0-0.2) Promyelocytes # 0.00 K/uL (0-0) Blast Cells # 0.00 K/uL (0-0) Toxic Granulation 1+ Platelet Estimate DECREASED Large Platelets 1+ Echinocytes 2+ Prothrombin Time 26.1 SECONDS (9.0-12.0) Prothromb Time International Ratio 2.4 (0.9-1.1) Activated Partial Thromboplast Time 46.5 SECONDS (21.0-31.0) Partial Thromboplastin Ratio 1.8 Anion Gap 23.0 mmol/L (3-11) Estimated GFR () 17.3 Estimated GFR (Non- 14.9 BUN/Creatinine Ratio 8.4 (10-20) Calcium Level 7.3 mg/dl (8.5-10.1) Total Bilirubin 2.5 mg/dl (0.2-1) Aspartate Amino Transf (AST/SGOT) 146 U/L (15-37) Alanine Aminotransferase (ALT/SGPT) 190 U/L (12-78) Alkaline Phosphatase 138 U/L (45-117) Total Protein 4.6 gm/dl (6.4-8.2) Albumin 1.9 gm/dl (3.4-5.0) Globulin 2.7 gm/dl (2.5-4.0) Albumin/Globulin Ratio 0.7 (0.9-2) Bedside Lactic Acid Venous 12.08 mmol/L (0.90-1.70) Urine Color DK YELLOW Urine Appearance TURBID (CLEAR) Urine pH 5.0 (4.5-7.5) Urine Specific [place] 1.036 (1.000-1.030) Urine Protein 2+ (NEG) Urine Glucose (UA) NEG (NEG) Urine Ketones TRACE (NEG) Urine Occult Blood NEG (NEG) Urine Nitrite POS (NEG) Urine Bilirubin 1+ (NEG) Urine Urobilinogen NEG (NEG) Urine Leukocyte Esterase TRACE (NEG) Urine WBC (Auto) 1-5 /hpf (0-5) Urine RBC (Auto) 5-10 /hpf (0-4) Urine Hyaline Casts (Auto) >30 /lpf (0-5) Urine Epithelial Cells (Auto) >30 /lpf (0-5) Urine Bacteria (Auto) NEG (NEG) Urine Renal Epithelial Cells 5-10 /lpf (0-5) Urine Pathogenic Casts 0-3 GRANULAR CASTS /lpf (0) Urine Yeast (Auto) PRESENT (NONE PRSENT) Bedside Glucose 102 mg/dl (70-90) Laboratory results as stated above per my review. Medications Administered Medications (Trade) Dose Ordered Sig/Ruiz Route Start Time Stop Time Status Last Admin Dose Admin Sodium Chloride 500 ml @ 999 mls/hr Q31M ONCE IV 02/18/17 18:40 02/18/17 19:10 DC 02/18/17 18:40 999 MLS/HR Dextrose (Dextrose 50% 50ML Syringe) 25 ml NOW ONCE IV 02/18/17 19:45 02/18/17 19:46 DC 02/18/17 19:48 25 ML Sodium Chloride 1,000 ml @ 500 mls/hr Q2H STAT IV 02/18/17 20:41 02/18/17 22:40 DC 02/18/17 20:47 500 MLS/HR Morphine Sulfate (MoRPHine SULFATE INJ) 2 mg STK-MED ONCE .ROUTE 02/18/17 20:44 02/18/17 20:45 DC 02/18/17 20:47 2 MG Dextrose 500 ml @ 100 mls/hr Q5H ONCE IV 02/18/17 21:00 02/18/17 23:36 DC 02/18/17 21:09 100 MLS/HR Vancomycin HCl 1500 mg/Sodium Chloride 530 ml @ 125 mls/hr NOW STAT IV 02/18/17 21:41 02/19/17 01:55 02/18/17 22:11 125 MLS/HR ECG Indication: tachycardia, weakness Rate (beats per minute): 129 Rhythm: sinus tachycardia Findings: PAC, no acute ischemic change, other (normal axis) ED Course 1832: Past medical records reviewed. The patient was evaluated in room C7. A complete history and physical examination was performed. 0: NSS 500 ml @ 999 mls/hr IV. 5: Dextrose 25 ml IV. 2040: NSS 1000 ml @ 500 mls/hr IV. 2043: Morphine Sulfate 2 mg IV. 2046: I discussed the patient's case with Dr. Hull, [facility] [place]. The patient will be evaluated for further management. 2049: Upon reevaluation, the patient is stable. I discussed today's findings with her and her . They verbalized agreement of the treatment plan. I spoke with Dr. Hull of the [facility] [place] to evaluate the patient for further management. 2099: Dextrose 500 ml @ 100 mls/hr IV. Medical Decision Nurses notes reviewed. Medical history sheet reviewed. Differential diagnosis includes but is not limited to: strep pharyngitis, viral pharyngitis, sepsis, metastatic breast cancer, ascites. The patient arrives here ashen and guerrero. The patient has significant ascites despite a paracentesis within the past week. She has a history of metastatic breast cancer. Multiple labs, EKG and imaging were obtained. The patient was hypoglycemic here in the ED and required IV D50. White count is extremely low. Lactic acid is greater than 12. The patient is hypotensive. A sepsis protocol was utilized. I discussed care with the hospitalist. I also discussed care with the patient and her . The patient will require further evaluation in the hospital. Blood cultures were obtained prior to administration of antibiotics which will be chosen by the hospitalist. Medication Reconciliation: I attest that I have personally reviewed the patient' s current medication list. Blood Pressure Screening: Patient was found to have a low blood pressure and was referred to the hospitalist for recheck and further treatment. Consults Time Called: 2042 Consulting Physician: Dr. Hull [facility] [place] Returned Call: 2046 I discussed the patient's case with her. The patient will be evaluated for further management. Impression Primary Impression: Hypotension Additional Impressions: Metastatic breast cancer Lactic acidosis Severe neutropenia Hypoglycemia Critical Care I have personally spent greater than 35 minutes of critical care time in the direct management of this patient. This includes bedside care, interpretation of diagnostic studies, and testing, discussion with consultants, patient, and family members, and other required patient management activities. This 35 minutes is in excess of all separately billable procedures. Scribe Attestation The scribe's documentation has been prepared under my direction and personally reviewed by me in its entirety. I confirm that the note above accurately reflects all work, treatment, procedures, and medical decision making performed by me. Departure Information Dispostion Being Evaluated By Hospitalist Referrals Abdiel Bray M.D. (PCP) Patient Instructions My [facility] Problem Qualifiers
--- NOTE | 2017-02-18 19:16 | DIAGNOSTIC IMAGING REPORT ---
SINGLE VIEW CHEST CLINICAL HISTORY: Sepsis. FINDINGS: An AP, portable, upright chest radiograph is compared to study dated 02/04/2017. Correlation is made with PET/CT dated 01/29/2017. The examination is degraded by portable technique and patient rotation. A right subclavian central venous infusion port is unchanged in position. The cardiomediastinal silhouette is unremarkable. Chronic interstitial thickening is unchanged. There is a small left pleural effusion with associated consolidation. This is unchanged from previous. The lungs are otherwise clear. No pneumothorax is seen. The skeletal structures are osteopenic. The bony thorax is grossly intact. IMPRESSION: 1. There is a small left pleural effusion with associated consolidation. This likely represents atelectasis and is similar to previous. Clinical correlation will be required. 2. The lungs are otherwise clear. Electronically signed by: Melecio Schultz M.D. 02/18/2017 7:15 PM Dictated Date/Time: 02/18/2017 7:12 PM
[2017-02-18 19:25] LABS: INR 2.4 (0.9-1.1); PARTIAL THROMBOPLASTIN RATIO 1.8; PROTHROMBIN TIME (PATIENT) 26.1 SECONDS (9.0-12.0)
[2017-02-18 19:30] LABS: ALB/GLOB RATIO 0.7 (0.9-2); ALKALINE PHOSPHATASE 138 U/L (45-117); ALT/SGPT 190 U/L (12-78); AST/SGOT 146 U/L (15-37); BLOOD UREA NITROGEN 27 mg/dl (7-18); BUN/CREATININE RATIO 8.4 (10-20); CALCIUM 7.3 mg/dl (8.5-10.1); CARBON DIOXIDE 11 mmol/L (21-32); CHLORIDE 104 mmol/L (98-107); GLUCOSE 45 mg/dl (70-99); POTASSIUM 4.3 mmol/L (3.5-5.1); SODIUM 138 mmol/L (136-145)
[2017-02-18] MEDS ORDERED: DEXTROSE 50% 50 ML SYR IV ONE (19:45)
[2017-02-18 20:11] LABS: HEMATOCRIT 33.8 % (37-47); MEAN CELL VOLUME 83.9 fL (80-100); MEAN CORPUSCULAR HEMOGLOBIN 27.5 pg (25-34); MEAN CORPUSCULAR HGB CONC 32.8 g/dl (32-36); PLATELET COUNT 120 K/uL (130-400); RED BLOOD COUNT 4.03 M/uL (4.2-5.4); WHITE BLOOD COUNT 0.65 K/uL (4.8-10.8)
[2017-02-18 20:12] LABS: ECHINOCYTES 2+; LARGE PLATELETS 1+; PLT ESTIMATE DECREASED; TOXIC GRANULATION 1+
[2017-02-18 20:13] LABS: URINE APPEARANCE TURBID (CLEAR); URINE COLOR DK YELLOW; URINE EPITHELIAL CELL AUTO >30 /lpf (0-5); URINE NITRITE POS (NEG); URINE SPECIFIC GRAVITY 1.036 (1.000-1.030); UROBILINOGEN NEG (NEG); ZZURINE CULT IF INDIC CATH YES
[2017-02-18 20:17] LABS: BASO ABS # 0.02 K/uL (0-0.2); BASOPHIL % 2.4 %; EOSINOPHIL % 1.2 %; LYMPH ABS # 0.52 K/uL (1.2-3.4); NEUTROPHILS % 5.5 %
[2017-02-18 20:41] LABS: URINE BILIRUBIN 1+ (NEG)
[2017-02-18] MEDS ORDERED: SODIUM CHLORIDE 0.9% 1000ML 1,000 ML IV STA (20:41)
[2017-02-18 20:42] LABS: MANUAL MICROSCOPIC REQUIRED? NO; REVIEW REQ? YES
[2017-02-18] MEDS ORDERED: MoRPHine SULFATE 2 MG/ML CARP ONE (20:44)
[2017-02-18] MEDS ORDERED: MoRPHine SULFATE 4 MG/ML 1 ML CARP IV PRN (20:45)
[2017-02-18 20:48] LABS: URINE PATH CASTS 0-3 GRANULAR CASTS /lpf (0)
[2017-02-18] MEDS ORDERED: DEXTROSE 5% 500ML 500 ML IV ONE (21:00)
[2017-02-18] MEDS ORDERED: PIPERACILLIN/TAZOBACTAM 3.375 GM/100ML D5W IV STA (21:41)
[2017-02-18] MEDS ORDERED: VANCOMYCIN INJ 1,500 MG in SODIUM CHLORIDE 0.9% 500ML 500 ML IV STA (21:41)
[2017-02-18] MEDS ORDERED: ALUMINUM/MAGNESIUM/SIMETH (MAALOX MAX) 30 ML UDC PO PRN (21:45)
[2017-02-18] MEDS ORDERED: ACETAMINOPHEN 325 MG TAB PO PRN (21:45)
[2017-02-18] MEDS ORDERED: ONDANSETRON INJ 2 MG/ML 2 ML VIAL IV PRN (21:45)
[2017-02-18] MEDS ORDERED: POLYETHYLENE (MIRALAX) 17 GM PACK PO PRN (21:45)
[2017-02-18] MEDS ORDERED: PIPERACILLIN/TAZOBACTAM 4.5 GM/100ML D5W IV STA (21:49)
--- NOTE | 2017-02-18 21:53 | History and Physical ---
History & Physical Date & Time of Service: Feb 18, 2017 at 21:52 Chief Complaint: Sore Throat, Difficulty Breathing- Stage 4 Ca Primary Care Physician: Abdiel Bray M.D. History of Present Illness Source: patient 62 y/o F Hx stage 3 breast CA treated with B/L mastectomy, chemo, Herceptin, radiation 2013 presented to ER with complaints of worsening sore throat which started a few days ago. She was recently admitted to [facility] [address] in January 2017. Her recent PET/CT was diagnostic of widespread metastatic disease including multiple osteoblastic lesions and ascites. She also had paracentesis which was consistent with recurrence and metastases of breast cancer. She complained of sore throat and hoarseness associated with fevers and chills. She has painful swallowing.She also complains of nausea and vomiting with diarrhea which started about 3 days ago. Denies any chest pain. Denies any abdominal pain though her abdomen is distended. Denies any urinary symptoms. Past Medical/Surgical History Medical Problems: (1) Breast cancer Permanent Comment: Self detected right breast mass Abnormal bilateral mammography and ultrasounds Status post ultrasound-guided biopsies 05/21/2014 revealing DCIS of the left breast and invasive lobular carcinoma the right breast Status post bilateral mastectomies with left sentinel lymph node biopsy and right axillary dissection Left breast stage [id number] Right breast stage [id number] Status post 6 cycles of TCH Ongoing Herceptin for 1 year Status post completion of radiation therapy right chest wall, supraclavicular area and axilla 03/01/2015 received 6120 cGy Status: Resolved Family History Cancer Social History Smoking Status: Never Smoker Marital Status: Housing status: lives with family Immunizations History of Influenza Vaccine: N/A History of Tetanus Vaccine?: utd History of Pneumococcal: No History of Hepatitis B Vaccine: No Allergies Coded Allergies: No Known Allergies (Unverified , 02/18/17) Home Medications Scheduled Acetaminophen (Tylenol), 2 TABS PO DAILY Anastrozole (Arimidex), 1 MG PO QAM Calcium/Vitamin D (Os-Angel 500 Plus D), 1 TAB PO BID Multivitamin (Multivitamin), 1 TAB PO DAILY Ranitidine HCl (Ranitidine HCl), 150 MG PO DAILY Scheduled PRN Metoclopramide (Reglan), 10 MG PO Q6H PRN for Nausea Review of Systems Constitutional: + fever Eyes: No worsening of vision ENT: + sore throat, + trouble swallowing, No hearing loss Respiratory: + shortness of breath, No cough, No sputum Cardiovascular: No chest pain Abdomen: + nausea, + vomiting, + diarrhea, No pain Musculoskeletal: No joint pain Genitourinary - Female: No dysuria, No urinary frequency, No urinary urgency Neurologic: No memory loss Endocrine: + fatigue Hematologic / Lymphatic: No abnormal bleeding/bruising Integumentary: No rash Physical Exam Vital Signs Date Time Temp Pulse Resp B/P (MAP) Pulse Ox O2 Delivery O2 Flow Rate FiO2 02/18/17 21:45 132 20 90/56 95 Room Air 02/18/17 21:03 130 20 79/52 96 Room Air 02/18/17 20:23 135 20 85/54 98 Room Air 02/18/17 19:42 131 20 85/54 97 Room Air 02/18/17 19:08 134 20 79/54 100 Room Air 02/18/17 18:50 100 Room Air 02/18/17 18:37 132 02/18/17 18:23 97 Room Air 02/18/17 18:20 36.7 129 26 62/47 97 Room Air General Appearance: + mild distress Neck: supple Respiratory/Chest: chest non-tender, no respiratory distress, no accessory muscle use Cardiovascular: + tachycardia Abdomen/GI: normal bowel sounds, non tender, soft, + distended Extremities/Musculoskelatal: + pedal edema Neurologic/Psych: alert, normal mood/affect, oriented x 3 Skin: normal color Diagnostics Laboratory Results Results Past 24 Hours Test 02/18/17 19:00 02/18/17 19:01 02/18/17 19:36 02/18/17 20:00 Range/Units White Blood Count 0.65 4.8-10.8 K/uL Red Blood Count 4.03 4.2-5.4 M/uL Hemoglobin 11.1 12.0-16.0 g/dL Hematocrit 33.8 37-47 % Mean Corpuscular Volume 83.9 80-100 fL Mean Corpuscular Hemoglobin 27.5 25-34 pg Mean Corpuscular Hemoglobin Concent 32.8 32-36 g/dl Platelet Count 120 130-400 K/uL Mean Platelet Volume 11.0 7.4-10.4 fL RDW Standard Deviation 59.6 36.4-46.3 fL RDW Coefficient of Variation 19.7 11.5-14.5 % Nucleated RBC Absolute Count (auto) 0.14 0-0 K/uL Neutrophils % (Manual) 5.5 % Lymphocytes % (Manual) 80.0 % Monocytes % (Manual) 9.7 % Eosinophils % (Manual) 1.2 % Basophils % (Manual) 2.4 % Promyelocytes % 0.6 % Blast Cells % 0.6 % Nucleated Red Blood Cells % 22.2 % Neutrophils # (Manual) 0.04 1.4-6.5 K/uL Total Absolute Neutrophils 0.04 1.4-6.5 K/uL Lymphocytes # (Manual) 0.52 1.2-3.4 K/uL Total Absolute Lymphocytes 0.52 1.2-3.4 K/uL Monocytes # (Manual) 0.06 0.11-0.59 K/uL Eosinophils # (Manual) 0.01 0-0.5 K/uL Basophils # (Manual) 0.02 0-0.2 K/uL Promyelocytes # 0.00 0-0 K/uL Blast Cells # 0.00 0-0 K/uL Toxic Granulation 1+ Platelet Estimate DECREASED Large Platelets 1+ Echinocytes 2+ Prothrombin Time 26.1 9.0-12.0 SECONDS Prothromb Time International Ratio 2.4 0.9-1.1 Activated Partial Thromboplast Time 46.5 21.0-31.0 SECONDS Partial Thromboplastin Ratio 1.8 Sodium Level 138 136-145 mmol/L Potassium Level 4.3 3.5-5.1 mmol/L Chloride Level 104 98-107 mmol/L Carbon Dioxide Level 11 21-32 mmol/L Anion Gap 23.0 3-11 mmol/L Blood Urea Nitrogen 27 7-18 mg/dl Creatinine 3.20 0.60-1.20 mg/dl Estimated GFR () 17.3 Estimated GFR (Non- 14.9 BUN/Creatinine Ratio 8.4 10-20 Random Glucose 45 70-99 mg/dl Calcium Level 7.3 8.5-10.1 mg/dl Total Bilirubin 2.5 0.2-1 mg/dl Aspartate Amino Transf (AST/SGOT) 146 15-37 U/L Alanine Aminotransferase (ALT/SGPT) 190 12-78 U/L Alkaline Phosphatase 138 45-117 U/L Total Protein 4.6 6.4-8.2 gm/dl Albumin 1.9 3.4-5.0 gm/dl Globulin 2.7 2.5-4.0 gm/dl Albumin/Globulin Ratio 0.7 0.9-2 Bedside Lactic Acid Venous 12.08 0.90-1.70 mmol/L Bedside Glucose 35 70-90 mg/dl Urine Color DK YELLOW Urine Appearance TURBID CLEAR Urine pH 5.0 4.5-7.5 Urine Specific [place] 1.036 1.000-1.030 Urine Protein 2+ NEG Urine Glucose (UA) NEG NEG Urine Ketones TRACE NEG Urine Occult Blood NEG NEG Urine Nitrite POS NEG Urine Bilirubin 1+ NEG Urine Urobilinogen NEG NEG Urine Leukocyte Esterase TRACE NEG Urine WBC (Auto) 1-5 0-5 /hpf Urine RBC (Auto) 5-10 0-4 /hpf Urine Hyaline Casts (Auto) >30 0-5 /lpf Urine Epithelial Cells (Auto) >30 0-5 /lpf Urine Bacteria (Auto) NEG NEG Urine Renal Epithelial Cells 5-10 0-5 /lpf Urine Pathogenic Casts 0-3 GRANULAR CASTS 0 /lpf Urine Yeast (Auto) PRESENT NONE PRSENT Test 02/18/17 20:19 Range/Units Bedside Glucose 102 70-90 mg/dl Microbiology Results 02/18/17 Blood Culture, Received Pending 02/18/17 Blood Culture, Received Pending 02/18/17 Group A Streptococcus Screen - Final, Resulted SPECIMEN NEGATIVE FOR GROUP A BETA ST... 02/18/17 Group A Streptococcus Screen (CATHERINE), Resulted Pending 02/18/17 Urine Culture, Received Pending Diagnostic Radiology SINGLE VIEW CHEST CLINICAL HISTORY: Sepsis. FINDINGS: An AP, portable, upright chest radiograph is compared to study dated 02/04/2017. Correlation is made with PET/CT dated 01/29/2017. The examination is degraded by portable technique and patient rotation. A right subclavian central venous infusion port is unchanged in position. The cardiomediastinal silhouette is unremarkable. Chronic interstitial thickening is unchanged. There is a small left pleural effusion with associated consolidation. This is unchanged from previous. The lungs are otherwise clear. No pneumothorax is seen. The skeletal structures are osteopenic. The bony thorax is grossly intact. IMPRESSION: 1. There is a small left pleural effusion with associated consolidation. This likely represents atelectasis and is similar to previous. Clinical correlation will be required. 2. The lungs are otherwise clear. Electronically signed by: Melecio Schultz M.D. 02/18/2017 7:15 PM Impression Assessment and Plan 62 y/o F Hx stage 3 breast CA treated with B/L mastectomy, chemo, Herceptin, radiation 2013 , hypertension presented to the ER with complaints of sore throat that started about 3 days ago. Was found to be hypotensive on admission the blood pressure of 62/47 and also found to have a white count of 0.65. Her lactic acid was elevated at 12.08 Septic shock: Meets criteria with low white count of 0.65, ANC of 0.04, elevated lactic acid of 12.08, tachycardia, hypotension - Status post chemotherapy for metastatic breast cancer - Neutropenia with white count of 0.65, last white count 02/03 : 16.5 - Initial lactic acid 12.08-->9.9 - Chest x-ray:1. There is a small left pleural effusion with associated consolidation. This likely represents atelectasis and is similar to previous. Clinical correlation will be required. The lungs are otherwise clear. - UA: Positive for nitrites, negative WBCs, trace leuk esterase - Port site appears healthy - Blood cultures pending - Rapid strep negative - Continue IV vancomycin, IV Zosyn, IV fluconazole - Continue IV fluids and albumin Sore throat: - Likely secondary to [place]/thrush - Rapid strep negative - Continue IV fluconazole as above - Magic mouthwash for symptomatic relief Hypoglycemia: Likely secondary to infection/decreased by mouth intake/cachexia secondary to metastatic breast cancer - Initial blood sugar at 35 - Continue D5W - Monitor blood sugars Acute kidney injury: - Creatinine at 3.2, baseline 1.2 - Likely secondary to dehydration/ decreased by mouth intake - Hold lisinopril Transaminitis: - Elevated AST at 146, ALT at 190, alk phosphatase at 138 - Likely secondary to metastatic disease Stage III breast cancer with widespread metastatic disease: - Status post chemotherapy - Consult oncology DVT prophylaxis: SCDs DO NOT RESUSCITATE Disposition: Admitted to telemetry, neutropenic precautions Level of Care Med/Surg Resuscitation Status DO NOT RESUSCITATE VTE Prophylaxis VTE Risk Assessment Done? Y/N: Yes Risk Level: Moderate Resident Tracking Resident Involvement: Resident Care Provided Care Provided: Adult Hospital Medicine Assessment and Plan Attending Addendum: I physically seen and examined this patient, have supervised the medical residents activities, and agree with the H&P as noted above with the following exceptions: NONE The patient is awake, well-developed and adequately nourished, alert and oriented 3, normocephalic and atraumatic, lying in bed and in no acute distress. HEENT--PERRL, EOMI, mucous membranes and oropharynx dry. Neck--supple, no JVD or bruits, thyroid normal, trachea midline, no adenopathy. Heart--normal S1 and S2, no extra beats, no murmurs, rubs or gallops. Lungs--decreased breath sounds at left base, no respiratory distress, no accessory muscle use. Abdomen--normal bowel sounds and soft, nontender and nondistended, no hernias or masses, no organomegaly. Extremities--no cyanosis, clubbing or edema. There are good distal pulses b/l. Dermatologic--normal skin turgor, normal color, warm and dry, no abnormal lymph nodes, no rash. Neurologic--cranial nerves II through XII grossly intact, motor and sensory examination normal. Rheumatologic--normal range of motion, nontender, muscles and joints. Psychiatric--normal affect. Assessment and Plan: 1. Neutropenic fever/septic shock--ANC of 40, lactic acid 12.0, tachycardia, and initial blood pressure 62/47--the patient be admitted to the telemetry unit. Most likely sources of infection are UTI and/or pneumonia. Also has thrush. Status post chemotherapy for metastatic breast cancer. Place on vancomycin IV per renal dosing, Zosyn 3.375 mg IV every 8 hours, fluconazole 200 mg IV daily. Continue normal saline with potassium chloride 20 mEq at 200 ML's per hour. Given IV albumin 25 g now and repeat in 2 hours.
[2017-02-18] MEDS ORDERED: MAGIC MOUTHWASH PO PRN (22:00)
[2017-02-18] MEDS ORDERED: PIPERACILL/TAZOBAC CONSULT ACTIVE PRN (22:00)
[2017-02-18] MEDS ORDERED: HEPARIN SOD 5000 UNIT/0.5 ML CARP SQ SCH (22:00)
[2017-02-18] MEDS ORDERED: VANCOMYCIN CONSULT ACTIVE PRN (22:00)
[2017-02-18] MEDS ORDERED: ALBUMIN HUMAN 25% 12.5 GM/50 ML VIAL IV ONE (22:00)
[2017-02-18 22:51] VITALS: BP 95/65; PULSE 144; TEMP 36.8; O2SAT 94; Ht 160 cm; Wt 87.5 kg
[2017-02-18] MEDS ORDERED: FLUCONAZOLE / NSS 200 MG in PREMIXED NSS 100 ML IV SCH (23:00)
[2017-02-18] MEDS ORDERED: D5NSS + 20MEQ KCL 1,000 ML IV SCH (23:23)
[2017-02-18] MEDS ORDERED: METOCLOPRAMIDE HCL 10 MG TAB PO PRN (23:30)
[2017-02-18 23:35] VITALS: BP 89/63; PULSE 142; TEMP 36.7; O2SAT 94
[2017-02-19] VITALS: O2SAT 94
[2017-02-19 04:00] VITALS: O2SAT 90
[2017-02-19] MEDS ORDERED: ALBUMIN HUMAN 25% 12.5 GM/50 ML VIAL IV ONE (04:15)
[2017-02-19 04:30] VITALS: BP 75/56; PULSE 141; TEMP 37; O2SAT 92
[2017-02-19 04:54] VITALS: BP 79/49
[2017-02-19] MEDS ORDERED: NURSING VERBAL MED ORDER ONE ×2 (05:15→06:00)
[2017-02-19] MEDS ORDERED: MoRPHine SULFATE 2 MG/ML CARP ONE (05:38)
[2017-02-19 05:42] LABS: ALB/GLOB RATIO 0.9 (0.9-2); BUN/CREATININE RATIO 9.1 (10-20); MAGNESIUM 1.7 mg/dl (1.8-2.4); POTASSIUM 6.1 mmol/L (3.5-5.1)
[2017-02-19 05:54] LABS: BETA-HYDROXYBUTYRATE 1.72 mg/dL (0.2-2.81)
[2017-02-19] MEDS ORDERED: SODIUM BICARB 8.4% INJ 50 MEQ/50 ML SYR IV ONE (06:00)
[2017-02-19] MEDS ORDERED: LORAZEPAM 2 MG/ML 1 ML VIAL IV PRN (06:00)
[2017-02-19] MEDS ORDERED: MoRPHine SULFATE 2 MG/ML CARP IV PRN (06:00)
[2017-02-19] MEDS ORDERED: DEXAMETHASONE INJ 4 MG in SYRINGE 0 ML IV ONE (06:00)
[2017-02-19] MEDS ORDERED: PIPERACILL/TAZOBAC IV 4.5 GM in DEXTROSE 5% 100ML 100 ML IV SCH (06:00)
[2017-02-19] MEDS ORDERED: LORAZEPAM INJ 0.5 MG in SYRINGE 0.75 ML IV PRN (06:00)
[2017-02-19 07:10] LABS: HEMATOCRIT 27.7 % (37-47); MEAN CELL VOLUME 83.4 fL (80-100); MEAN CORPUSCULAR HGB CONC 33.6 g/dl (32-36); MEAN PLATELET VOLUME 11.5 fL (7.4-10.4); PLATELET COUNT 104 K/uL (130-400); RED BLOOD COUNT 3.32 M/uL (4.2-5.4); WHITE BLOOD COUNT 0.61 K/uL (4.8-10.8)
[2017-02-19 07:12] LABS: ANISOCYTOSIS PRESENT; BASOPHIL % 0.6 %; COMPLETE YES; ECHINOCYTES 2+; EOSINOPHIL % 1.1 %; HOWELL-JOLLY BODIES 1+; LARGE PLATELETS 2+; LYMPH ABS # 0.51 K/uL (1.2-3.4); LYMPHOCYTE % 83.2 %; META ABS # 0.01 K/uL (0-0); METAMYELOCYTE % 1.1 %; NEUTROPHILS % 2.8 %; PLT ESTIMATE DECREASED; POLYCHROMASIA 1+
[2017-02-19] MEDS ORDERED: DEXAMETHASONE CONC SOLN 3.75 MG, NYSTATIN SUSP 30 ML, DiphenhydrAMINE HCL SYRUP 300 MG,... PO SCH ×5 (08:00)
[2017-02-19] MEDS ORDERED: ANASTROZOLE 1 MG TAB PO SCH (09:00)
[2017-02-19] MEDS ORDERED: RANITIDINE HCL 150 MG TAB PO SCH (09:00)
[2017-02-19] MEDS ORDERED: VANCOMYCIN INJ 1,000 MG in SODIUM CHLORIDE 0.9% 250ML 250 ML SCH (09:00)
[2017-02-19 12:09] LABS: COMPLETE YES
--- NOTE | 2017-02-28 07:28 | Death Pronouncement Note ---
Pronouncement Note Date & Time of Feb 28, 2017. 6:15AM Pronouncement At time of pronouncement the patients pupils were fixed and dilated, there was no spontaneous respiratory effort, no palpable pulse, no audible heart tones, and no response to pain or voice. The patient was admitted to the hospital with a diagnosis of septic shock, secondary to neutropenic fever and chemotherapy for metastatic breast cancer stage IV. She was placed on vancomycin IV, Zosyn IV, fluconazole IV, nebulizer treatments, IV fluids, and IV albumin. The patient was admitted as a level V DO NOT RESUSCITATE/DO NOT INTUBATE. Active diagnoses were that of pneumonia, pleural effusion, thrush, hypoglycemia , acute kidney injury, transaminitis, hypotension, lactic acidosis, and tachycardia. At 6:15AM, the patient was found by the nurses to no longer have spontaneous respirations, and no pulse. Her time of was noted at 6:15AM Routine post mortem protocol was followed.
== END 2017-02-19 10:35 | disposition expired | DRG 871 ==
LOC: C.EDB 18:20 → C.2E 21:46 → ENRESERV 21:52
PROVIDERS: ADMIT Family Medicine; ATTEND Hospitalist
DX: A41.9 Sepsis, unspecified organism (principal); R65.21 Severe sepsis with septic shock; J18.9 Pneumonia, unspecified organism; J91.8 Pleural effusion in other conditions classified elsewhere; B37.0 Candidal stomatitis; E87.2 Acidosis; N17.9 Acute kidney failure, unspecified; C79.9 Secondary malignant neoplasm of unspecified site; C50.911 Malignant neoplasm of unspecified site of right female breast; C50.912 Malignant neoplasm of unspecified site of left female breast; Z90.13 Acquired absence of bilateral breasts and nipples; R19.7 Diarrhea, unspecified; Z66 Do not resuscitate; E16.2 Hypoglycemia, unspecified; Z80.9 Family history of malignant neoplasm, unspecified; Z79.899 Other long term (current) drug therapy